=== PATIENT | male | born 1940 | race Caucasian/White ===

== ENCOUNTER 2023-10-21 11:20 | Inpatient (IN) | payer OTHER, SELFPAY ==
[2023-10-20] VITALS (8 sets, daily range): BP systolic 126–156; BP diastolic 62–86; BMI 25.3; BMI 24.9
[2023-10-20 10:28] LABS: % Basophils 0.4 % (0-2); % Eosinophils 1.3 % (0-6); % Immature Granulocytes 0.4 % (0-0.5); % Neutrophils 64.9 % (42.2-75.2); Absolute Eosinophils 0.1 10^3/uL (0-0.7); Absolute Lymphocytes 2.1 10^3/uL (1.2-3.4); Absolute Monocytes 0.7 10^3/uL (0.1-0.6); Absolute Neutrophils 5.5 10^3/uL (1.4-6.5); Hematocrit 35.9 % (39.0-52.0); Hemoglobin 12.2 g/dL (13.0-18.0); Mean Corpuscular Hgb 31.2 pg (27.0-31.0); Mean Corpuscular Volume 91.8 fL (80.0-94.0); Mean Platelet Volume 11.3 fL (7.4-10.4); Nucleated Red Blood Cells % 0 % (-); Platelet Count 128 10^3/uL (130-400); Red Blood Cell Count 3.91 10^6/uL (4.70-6.10); Red Cell Dist. Width 12.9 % (11.5-14.5); Urine Albumin Trace (Neg - Trace); Urine Bilirubin Negative (Negative); Urine Character Clear (Clear); Urine Color Yellow; Urine Glucose Trace (Negative); Urine Ketone Negative (Negative); Urine Leukocyte Negative (Negative); Urine Nitrite Negative (Negative); Urine Occult Blood 4+ (Negative); Urine Urobilinogen Negative (Neg - 1+); Urine pH 6.5 (5.0-9.0); White Blood Cell Count 8.4 10^3/uL (4.8-10.8)
[2023-10-20 10:39] LABS: Lactic Acid 1.5 mmol/L (0.7-2.0)
--- NOTE | 2023-10-20 10:39 | ED.GENMED ---
History of Present Illness
General
Chief Complaint: Change in Mental Status
Source: patient
Exam Limitations: none
Time Seen by Provider: 10/20/23 10:19
Nursing documentation reviewed up to this point in time: agreed with
History of Present Illness
History of Present Illness:
83-year-old male presents emergency room by EMS due to repeated falls, increased confusion and increased weakness.
Past History
Past History
ED Past Medical History: Cancer (Skin CA), GERD, HTN, Hypercholesterolemia, NIDDM and Other (Alzheimer's, balance problems, GERD, stress incontinence, ambulatory dysfunction, PNA, )
ED Past Surgical History: Orthopedic (Neck surgery, Knee surgery) and Other (Hernia surgery, sinus surgery, Eye lid surgery)
Social History
Tobacco: Non-smoker
Alcohol: Occasional
Drug: None
Personal:
Living: with family
Employment: Retired
Review of Systems
Review of Systems
Allergies reviewed?: Yes
Unable to obtain full review of systems at this time due to: dementia
All Other Systems: Not applicable (Denies any complaints)
Phy Exam
Physical Exam
Physical Exam:
Physical Exam
General: Temperature 100.4
Neck: supple. no meningeal signs. normal posterior pharynx
Heart: s1/s2 regular rate and rhythm, no murmur. equal radial
pulses.
HEENT: Pupils equal round reactive to light, EOMI
Lungs: no acute respiratory distress. clear bilaterally
Abdomen: normal bowel sounds. not tender. no CVAT
Neuro: alert and oriented to person only. no focal neurological deficits cranial nerves II through XII intact
Skin: no rash
Psychiatric: well kept. interactive and cooperative
Extremities: no edema. no calf tenderness. negative homans. good distal pulses
Course
Orders/Labs/Results
Orders:
Orders
10/20/23 10:14
Electrocardiogram (*1) Stat
Reason for Study: Fatigue / Weakness
10/20/23 10:15
Electrocardiogram (*1) Urgent
Reason for Study: Chest Pain
Cardiac Monitoring- Treatment ONCE
EKG- Treatment ONCE
IV Insert/Care/Rem.- Treatment PRN
10/20/23 10:19
Complete Blood Count/With Diff Urgent
Comprehensive Metabolic Panel Urgent
Lactic Acid Urgent
Urinalysis Reflex To Culture Urgent
Date Specimen was Collected: 10/20/23
Time Specimen was Collected: 10:15
Urine Microscopic Reflex Cult Urgent
10/20/23 10:31
Blood Culture Urgent
SAADIA Source: Blood/Venous
Specimen Description:
10/20/23 10:36
COVID-19 Antigen Urgent
Source: Nasal Swab
Influenza A+B Rapid Molecular Urgent
SAADIA Source: Nasal Swab
Specimen Description:
10/20/23 10:38
CT Head W/o Iv Contrast Urgent
Comment:
Reason For Exam: fall
Acetaminophen [Tylenol] 650 mg PO NOW STA
10/20/23 10:39
CR Chest - 2 Views Urgent
Comment:
Reason For Exam: fever
10/20/23 10:46
Blood Culture Urgent
SAADIA Source: Blood/Venous
Specimen Description:
Abnormal Lab Results
10/20/23
10:19
RBC 3.91 L 10^6/uL
(4.70-6.10)
Hgb 12.2 L g/dL
(13.0-18.0)
Hct 35.9 L %
(39.0-52.0)
MCH 31.2 H pg
(27.0-31.0)
Plt Count 128 L 10^3/uL
(130-400)
MPV 11.3 H fL
(7.4-10.4)
Absolute Monos (auto) 0.7 H 10^3/uL
(0.1-0.6)
Chloride 108 H mmol/L
(98-107)
BUN 26 H mg/dl
(9-20)
Creatinine 3.6 H mg/dL
(0.7-1.3)
Glucose 140 H mg/dl
(70-99)
Ur Occult Blood Reflex 4+ A
(Negative)
Urine RBC 80-90 A /HPF
(0-2)
Urine Glucose Trace A
(Negative)
10/20/23 10:19
10/20/23 10:19
Vital Signs
Initial and Last Documented VS:
Initial Vital Signs
Temp Pulse Resp BP Pulse Ox
100.4 F H 68 12 138/86 95
10/20/23 10:12 10/20/23 10:12 10/20/23 10:12 10/20/23 10:12 10/20/23 10:12
Last Documented Vital Signs
Temp Pulse Resp BP Pulse Ox
100.4 F H 62 18 138/86 95
10/20/23 10:12 10/20/23 10:45 10/20/23 10:45 10/20/23 10:12 10/20/23 10:45
*Pulse Oximetry
Patient hypoxic: no
*EKG
Interpreted by ED Provider?: Yes
EKG Intrepretation Date: 10/20/23
EKG Intrepretation Time: 10:25
Interpretation: abnormal
Comparison EKG: no comparison EKG present
Heart Rate: 62
Rate: normal
Rhythm: sinus and PVC's
[place]aver: normal axis
Interval: normal interval
QRS Pattern: normal QRS
Ischemia: no ischemia
*Critical Care Note
Total Time (30-74mins, 75-104mins- exclusive of procedures): Not Applicable
ED Attending Note
-
Portions of this chart may have been created with voice recognition software.� Occasional wrong word or��sound alike� substitutions may have occurred due to the inherent limitations of voice recognition software.
Discharge Plan
Departure
Patient Disposition: Admit
Date of Disposition: 10/20/23
Time of Disposition: 13:01
Admit to: Telemetry
Presentation/result/management discussed w/ accepting MD/DO: Hospitalist
Patient with high blood pressure during this ER visit?: Yes
Condition: Fair
Discharge Problem:
Acute renal failure, Fever, Generalized weakness
Prescriptions:
No Action
tamsulosin 0.4 MG capsule
0.4 mg PO DAILY
escitalopram oxalate 20 MG tablet
30 mg PO HS
cetirizine 10 MG tablet
10 mg PO DAILY
donepezil 10 MG tablet
10 mg PO HS
latanoprost 1 DROP drops
1 drp BOTH EYES HS
insulin aspart U-100 [Novolog U-100 Insulin aspart] 100 unit/mL Solution
0 - 10 unit SC ACHS
Rx Instructions:
0-150 = 0 units; 151-200 = 2 units; 201-250= 4 units; 251-300= 6 units; 301-350= 8 units; 351-400= 10 units
amlodipine 5 mg Tablet
5 mg PO DAILY Qty: 0 0RF
Insulin Glargine Lantus [Lantus] 22 UNITS
Subcutaneous Insulin Syringe [Syringe-Insulin] 0 UNIT
As Directed mls/hr SC HS
Ordered By: Nghia Seals MD
Last Taken: Unknown
atorvastatin 80 mg Tablet
80 mg PO HS
acetaminophen 325 mg Tablet
650 mg PO Q4H PRN (Reason: mild pain/fever)
magnesium hydroxide [Milk of Magnesia] 400 mg/5 mL Suspension
30 ml PO DAILY PRN (Reason: if no bm x 3 days)
bisacodyl [Dulcolax (bisacodyl)] 10 mg Suppository
10 mg MA DAILY PRN (Reason: if mom ineffective)
Fleet Enema 19-7 gram/118 mL Enema
118 ml MA DAILY PRN (Reason: if dulcolax ineffective)
insulin aspart U-100 [Novolog FlexPen U-100 Insulin] 100 unit/mL (3 mL) insulin pen
11 unit SC BID@1130,1630
rosuvastatin 40 mg Tablet
40 mg PO DAILY
Referrals:
Todd Campbell MD [Family Provider] -
Interventions
Interventions:
*Risk Screen - Suicide Last Done: 10/20/23 10:09
*General Assessment Last Done: 10/20/23 10:09
*Neglect/Abuse Screening Last Done: 10/20/23 10:09
ED- Fall Risk Assessment Last Done: 10/20/23 10:09
*ED COVID-19 Vaccine History Last Done: 10/20/23 10:18
ED- Pulmonary Assessment Last Done: 10/20/23 10:18
ED-Psychological Assessment Last Done: 10/20/23 10:18
ED- Neurological Assessment Last Done: 10/20/23 10:18
ED- Cardiac Assessment Last Done: 10/20/23 10:18
ED Swallowing Screen Last Done: 10/20/23 10:18
Discharge Date and Time
Print Language: SAUDI ARABIAN
[2023-10-20] MEDS: TYLENOL 650 MG PO (10:44)
[2023-10-20 10:45] LABS: Urine Squamous Cell 0-2 /LPF (Few)
[2023-10-20 10:46] LABS: ALT (SGPT) 43 U/L (0-50); AST (SGOT) 48 U/L (17-59); Alkaline Phosphatase 106 U/L (38-126); Blood Urea Nitrogen 26 mg/dl (9-20); Calcium 8.8 mg/dl (8.4-10.2); Carbon Dioxide 23 mmol/L (22-30); Chloride 108 mmol/L (98-107); Estimated Creatinine Clearance 16 ml/min; Glucose 140 mg/dl (70-99); Potassium 4.5 mmol/L (3.5-5.1); Sodium 140 mmol/L (135-145); Total Bilirubin 0.7 mg/dl (0.2-1.3); eGFR 16.16
[2023-10-20 10:49] LABS: Urine Red Blood Cell 80-90 /HPF (0-2); Urine White Cell 0-2 /HPF (0-5)
[2023-10-20 11:01] LABS: COVID-19 Antigen Negative (Negative)
[2023-10-20 13:26] LABS: Glucose - Point of Care 160 mg/dl (70-99)
--- NOTE | 2023-10-20 14:22 | CON.ID ---
Consultation
-
Date/Time Consultation Requested: October 20, 2023
Date/Time Consultation Performed: October 20, 2023
Requesting Provider: Dr. Marisela Bunch
Performing Provider: Dr. Alexia Ty
Reason for Consultation: fever
Chief Complaint / Past History
Chief Complaint
Weakness and falls
History of Present Illness
History obtained from review medical records since patient has dementia and is a very poor historian. He is a 83-year-old male with Alzheimer's dementia, diabetes mellitus, CKD 3, stress incontinence who presented to the hospital today due to
weakness. Patient has been having decreased appetite for the past few days. Patient had coughing fit around 2 AM. No fever. Patient was too weak to get back to bed. He was noted to be more lethargic. In the ER temperature was 100.4. White count
normal. Patient noted to have JOSEPH on CKD. COVID-negative. Flu negative. Head CT no acute pathology. He received vancomycin and cefepime in the ER. Patient denies fevers or chills. No headache. No cough or shortness of breath. No diarrhea.
No abdominal pain. No dysuria. No flank pain. No ill contacts. He stays at home and does not go out much. Sometimes he sits outside in the yard. Has 1 cat at home. No ill contacts.
Past History
Additional Past Medical History:
Alzheimer dementia
Diabetes mellitus
Dyslipidemia
CKD3
BPH
Stress incontinence
ambulatory dysfunction
knee surgery
Allergy History:
No Known Allergies Allergy (Verified 10/20/23 10:08)
Medications Reviewed: Yes
Current Antibiotics:
Vancomycin
cefepime
Social History
Tobacco: Non-Smoker
Alcohol: None
Drug: None
Personal:
Living: With Family
Family History
Family History: Not Pertinent
Review of Systems
Review of Systems
General: Change in Appetite; Negative Fever or Chills
HEENT: Negative Sinus Problems, Headache or Pharyngitis
Cardiovascular: Negative Chest Pain
Respiratory: Negative Dyspnea or Cough
Gasteroenterology: Negative Nausea or Vomiting
Genital / Urological: Negative Dysuria or Flank Pain
Endocrine: Weakness
Skin / Hair / Nails: Negative Rash
Neurological: Negative Headache or Dizziness
All systems: All other systems were reviewed and were negative
Vital Signs
Temp Pulse Resp BP Pulse Ox
98.2 F 55 13 126/62 96
10/20/23 13:25 10/20/23 13:25 10/20/23 13:25 10/20/23 13:25 10/20/23 13:25
Selected Entries
10/20/23
10:12
Temp 100.4 F H
Physical Exam
Physical Exam
Constitutional: No Acute Distress, Comfortable and Non-toxic
Eyes: No Conjunctival Hemorrhage and Sclera Anicteric
Cardiovascular: Regular Rate and S1/S2
Pulmonary: Clear
Gastrointestinal: Soft, Non Tender, Non Distended and Normal Bowel Sounds
Genito-Urinary: Negative CVA Tenderness
Extremities: Negative Edema
Neurological: Awake and Alert
Psychological: Calm
Lab / Diagnostic Study Results
10/20/23 10:19
10/20/23 10:19
Abs Immat Gran (auto) 0.0 10^3/uL (0-0.05) 10/20/23 10:19
Absolute Neuts (auto) 5.5 10^3/uL (1.4-6.5) 10/20/23 10:19
Absolute Lymphs (auto) 2.1 10^3/uL (1.2-3.4) 10/20/23 10:19
Absolute Monos (auto) 0.7 10^3/uL (0.1-0.6) H 10/20/23 10:19
Absolute Basos (auto) 0.0 10^3/uL (0-0.2) 10/20/23 10:19
Immature Gran % 0.4 % (0-0.5) 10/20/23 10:19
Neutrophils % 64.9 % (42.2-75.2) 10/20/23 10:19
Lymphocytes % 25.0 % (20.5-51.1) 10/20/23 10:19
Monocytes % 8.0 % (1.7-9.3) 10/20/23 10:19
Eosinophils % 1.3 % (0-6) 10/20/23 10:19
Basophils % 0.4 % (0-2) 10/20/23 10:19
Lactic Acid 1.5 mmol/L (0.7-2.0) 10/20/23 10:19
Ur Squamous Epith Cells 0-2 /LPF (Few) 10/20/23 10:19
Microbiology Results
Micro:
10/20/23 10:36 Influenza Types A & B (HANDY) - Final
Nasal Swab Negative for Influenza A & B, NAAT
Negative results must be combined with clinical observations
and patient history.
Nucleic Acid Amplification test (NAAT)performed on the
[employer] platform.
10/20/23 10:46 Blood Culture - Pending
Blood/Venous
10/20/23 10:31 Blood Culture - Pending
Blood/Venous
10/20/23 CXR: No active cardiopulmonary disease.
10/20/[address]: No acute intracranial abnormality noted.
Assessment / Plan
# Low grade fever
# Lethargy/poor appetite
# JOSEPH on CKD3
- CXR neg.
- UA no pyuria
- await blood cx's
- Continue cefepime pending cx data.
- DC Vancomycin
- Follow temps.
--- NOTE | 2023-10-20 14:34 | W.CON.NEPH ---
Consultation
-
Date/Time Consultation Requested: October 20, 2023 2 PM
Date/Time Consultation Performed: October 20, 2023 2 PM
Requesting Provider: Dr Bunch
Performing Provider: Dr. Lockett
Reason for Consultation: Acute kidney injury
Medical History
-
Chief Complaint: Mental status change
History of Present Illness:
This is a an 83-year-old gentleman who has some baseline dementia on donezepil therapy, as well as type II on insulin therapy stable, BPH on Flomax therapy. He was sent to emergency room by his who typically cares for him at home. His report
that he has had more frequent falls has worsening confusion and weakness. His oral intake has also declined recently. At the time of admission he was noted to have acute kidney injury with a creatinine of 3.6. The patient reports no issues that
he recalls and actually has no idea why he is in the emergency room. It appears his baseline creatinine may be closer to 1.7 representing CKD 3B.
Past Medical History
Dementia, CKD 3B, diabetes mellitus type 2, BPH, hyperlipidemia, DM neck surgery, hernia surgery,, sinus surgery eyelid surgery
Social History
Tobacco: Non-Smoker
Alcohol: Occasional
Family History
Family History: Not Pertinent
Allergies / Home Medications
Allergy/AdvReac Type Severity Reaction Status Date / Time
No Known Allergies Allergy Verified 10/20/23 10:08
�Medication �Instructions �Recorded �Confirmed �Type
donepezil 10 mg tablet 10 mg PO HS Memory issues 09/15/19 10/20/23 History
tamsulosin 0.4 mg capsule 0.4 mg PO QPM Urinary issue 09/15/19 10/20/23 History
insulin aspart U-100 100 unit/mL 5 unit SC DAILY 09/29/22 10/20/23 History
subcutaneous solution (Novolog
U-100 Insulin aspart)
escitalopram oxalate 10 mg tablet 30 mg PO QPM 10/20/23 10/20/23 History
(Lexapro)
insulin aspart U-100 100 unit/mL 8 unit SC QPM 10/20/23 10/20/23 History
(3 mL) subcutaneous pen (Novolog
FlexPen U-100 Insulin aspart)
insulin aspart U-100 100 unit/mL 10 unit SC NOON 10/20/23 10/20/23 History
(3 mL) subcutaneous pen (Novolog
FlexPen U-100 Insulin aspart)
insulin glargine 100 unit/mL (3 22 unit SC HS 10/20/23 10/20/23 History
mL) subcutaneous pen (Lantus
Solostar U-100 Insulin)
rosuvastatin 40 mg tablet 40 mg PO HS 10/20/23 10/20/23 History
Review of Systems
-
eating and drinking less, decreased appetite
All other systems: Negative unless noted
Physical Exam
Vital Signs
Vital Signs
Temp Pulse Resp BP Pulse Ox
98.2 F 55 13 126/62 96
10/20/23 13:25 10/20/23 13:25 10/20/23 13:25 10/20/23 13:25 10/20/23 13:25
Lab Results
WBC 8.4 10^3/uL (4.8-10.8) 10/20/23 10:19
RBC 3.91 10^6/uL (4.70-6.10) L 10/20/23 10:19
Hgb 12.2 g/dL (13.0-18.0) L 10/20/23 10:19
Hct 35.9 % (39.0-52.0) L 10/20/23 10:19
Plt Count 128 10^3/uL (130-400) L 10/20/23 10:19
Sodium 140 mmol/L (135-145) 10/20/23 10:19
Potassium 4.5 mmol/L (3.5-5.1) 10/20/23 10:19
Chloride 108 mmol/L (98-107) H 10/20/23 10:19
Carbon Dioxide 23 mmol/L (22-30) 10/20/23 10:19
BUN 26 mg/dl (9-20) H 10/20/23 10:19
Creatinine 3.6 mg/dL (0.7-1.3) H 10/20/23 10:19
eGFR 16.16 10/20/23 10:19
Glucose 140 mg/dl (70-99) H 10/20/23 10:19
Calcium 8.8 mg/dl (8.4-10.2) 10/20/23 10:19
Albumin 4.0 g/dl (3.5-5.0) 10/20/23 10:19
Physical Exam
Patient is awake alert oriented and in no distress. Mood and affect were pleasant, insight and judgment were poor. Pupils are equal round and reactive to light, extraocular movements are intact, sclera were anicteric. Hearing was normal, ears and
nose are intact. Oropharynx was clear. Neck was supple with trachea midline and no thyromegaly. Heart was regular rate and rhythm without rubs. Lower extremities without edema. Lungs were clear to auscultation bilaterally and with normal
excursion. Abdomen was soft, nontender, with normal active bowel sounds, and no hepatosplenomegaly. Skin was without rash and with normal turgor.
Data Reviewed
-
Radiology: Image Personally Visualized and interpreted (Chest x-ray on October 20, 2023 by my reading shows no acute disease)
CT Scan: Report Reviewed by me (CT head on 10/20/2023 shows no acute disease)
Medical Tests (Nuc Med, Echo etc): Image Personally Visualized and interpreted (EKG on October 20, 2023 by my read shows normal sinus rhythm PAC)
Labs: Labs Reviewed by me (Hemoglobin 12.2, WBC 8.4, platelets 128, sodium 140, potassium 4.5, BUN 26, creatinine 3.6, glucose 140, urinalysis pH of 6.5/1.010, 4+ blood, 80 red cells, trace glucose, trace albumin)
Old Records: Reviewed
Critical Care Time (in minutes): On 09/30/2022 creatinine 1.7
Assessment/Plan
-
Assessment
acute kidney injury
CKD 3B, 1.7
Dementia
Diabetes mellitus type 2
BPH
Confusion, weakness
Falls decreased appetite
Plan
Check bladder scan
IV fluids
Follow BMP
Check urine studies
Check renal ultrasound
--- NOTE | 2023-10-20 14:36 | HPS.HSE ---
Family Physician
-
Family Physician: Todd Campbell
Chief Complaint
-
Generalized weakness and poor oral intake
History of Present Illness
81-year-old male who lives at home with his , with history of dementia and provided information while patient awake, alert and oriented denying particular complaint, brought to the hospital with his notes progressively getting weak and
lousy and lethargic in the last couple day mostly Saturday afternoon.
According to the he woke up around 2:00 in the morning, had a coughing spell without any sputum or shortness of breath or fever and was not able to put him back to help and called her daughter to come in and help him back in the bed, since
then he has been progressively worsening becoming weak and lousy and lethargic while during the few day prior he was not eating drinking much, according to the patient of no particular complaint other than what she noticed and observed by
herself.
No fall or accident no syncope, no urinary or GI symptoms.
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
Workup in the ER showed dehydration and acute on chronic renal failure and low-grade fever.
Chest x-ray and CT brain showed no acute abnormality.
Medical History
Past Medical History
Past Medical History: Reports Other
Additional Past Medical History:
Past medical history archive reviewed:
Dementia
Insulin-dependent mellitus
Ambulatory dysfunction
GERD
History of stress incontinence
Skin cancer
Hypertension
Dyslipidemia
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
Family history: Reviewed and noncontributory
Past Surgical History: Reports Appendectomy
Social History
Unable to obtain full social history at this time due to: Other
Family History
Family History: Other
Allergies / Home Medications
Allergies reflects when Allergies were last updated in [facility].
Home Medications with original date entered in [facility]
Allergy/Medication List:
Allergies
Allergy/AdvReac Type Severity Reaction Status Date / Time
No Known Allergies Allergy Verified 10/20/23 10:08
Home Medications
donepezil 10 mg tablet 10 mg PO HS Memory issues 09/15/19
tamsulosin 0.4 mg capsule 0.4 mg PO QPM Urinary issue 09/15/19
insulin aspart U-100 100 unit/mL subcutaneous solution (Novolog U-100 Insulin aspart) 5 unit SC DAILY 09/29/22
escitalopram oxalate 10 mg tablet (Lexapro) 30 mg PO QPM 10/20/23
insulin aspart U-100 100 unit/mL (3 mL) subcutaneous pen (Novolog FlexPen U-100 Insulin aspart) 8 unit SC QPM 10/20/23
insulin aspart U-100 100 unit/mL (3 mL) subcutaneous pen (Novolog FlexPen U-100 Insulin aspart) 10 unit SC NOON 10/20/23
insulin glargine 100 unit/mL (3 mL) subcutaneous pen (Lantus Solostar U-100 Insulin) 22 unit SC HS 10/20/23
rosuvastatin 40 mg tablet 40 mg PO HS 10/20/23
Review of Systems
-
A 12 point ROS was completed and negative except as noted: Yes
Physical Exam
Vital Signs
Vital Signs
Temp Pulse Resp BP Pulse Ox
97.6 F 52 16 139/67 95
10/20/23 14:34 10/20/23 14:34 10/20/23 14:34 10/20/23 14:34 10/20/23 14:34
physical exam:
General: Awake, alert and oriented x3, but lethargic, speaks in low tone of voice and not in distress and holds appropriate conversation.
HEENT: Poor dentition, no active discharge, ecchymosis or bruising, dry lips, tongue and mucous membrane.
Eyes: No discharge or red conjunctiva, no nystagmus, pupils are reactive and equal
Neck:Supple, no JVD no bruit no goiter.
Respiratory: Normal AP contour and diameter, normal chest wall movement, normal respiratory effort, no respiratory distress,
Lungs: Good air entry bilaterally, no wheezing or rhonchi, no rales or crackles
Heart: S1, S2 regular, normal rate, no added sound.
Gastrointestinal: Positive bowel sounds, soft, nontender, no guarding or rigidity or organomegaly
Musculoskeletal: , no chest wall abnormality or tenderness. All joints and extremities have good range of motion, no muscle tenderness or any joint swelling or tenderness.
Extremities: No pitting edema, good peripheral pulses, good range of motion
Skin: Warm and dry, no ulceration, normal color.
Neurological: Awake, alert and oriented x3, no facial droop cranial nerve II-XII grossly intact, speech clear and comprehensive, good muscle tone, normal sensory and motor function
Psychiatric: Normal mood, normal thought and judgment, normal affect,
Physical Exam
General: Other
Laboratory Results
-
10/20/23 10:19
10/20/23 10:19
Laboratory Results
Lactic Acid 1.5 mmol/L (0.7-2.0) 10/20/23 10:19
Total Bilirubin 0.7 mg/dl (0.2-1.3) 10/20/23 10:19
AST 48 U/L (17-59) 10/20/23 10:19
ALT 43 U/L (0-50) 10/20/23 10:19
Alkaline Phosphatase 106 U/L (38-126) 10/20/23 10:19
chest x-ray: No acute cardiopulmonary normality
Brain CT no acute intracranial abnormalities.
KG showed normal sinus rhythm rate around 62, OK 192, QTc 442 otherwise no acute abnormality
Data Reviewed
-
Diagnostic Radiology: Image Personally Visualized and interpreted, Discussed with Physician, Discussed with Patient and Discussed with Family
Lab Data: Labs Reviewed by me, Discussed with Physician and Discussed with Family
Old Records: Reviewed
Impression/Plan
-
IMPRESSION:
83-year-old male with history of dementia, brought to the hospital with a for worsening generalized weakness and poor oral intake over the last few days in the ER had some fever without any other signs and symptoms.
Generalized weakness
Fever, concern for viral infection while other causes need to be considered
Diabetic encephalopathy meningitis
Acute on chronic renal failure
Dehydration
Mild microscopic hematuria
Diabetes mellitus
Dementia
Dyslipidemia
Urinary incontinence
PLAN:
So far no source of infection isolated
Blood cultures collected and pending
Will cover with broad-spectrum antibiotic renally dosed including Vanco and cefepime until the picture clears up if there is no evidence of an infection then antibiotic can be discontinued otherwise if fever persist we may need to sánchez scan chest,
abdominal and pelvis
Get infectious disease consult
IV fluid
Monitor vital sign closely
Recheck
Avoid nephrotoxin
Nephrology consult
Decreases insulin with meal and Lantus as he is not eating much and will closely monitor blood sugar.
All discussed with the patient and the in detail
CODE STATUS was discussed with the patient and the according to the is DNR
DVT prophylaxis heparin subcu
--- NOTE | 2023-10-20 14:51 | EDRN ---
this RN called the receiving unit and notified them that paper report was going to be tubed up
--- NOTE | 2023-10-20 16:00 | PTCARENOTE ---
pt admitted from ED to room 435-02. pt pulled over from stretcher to bed. pt oriented to self, disoriented to time (unsure of the year). generalized weakness. pt pleasant and cooperative with care. lungs sounds clear to auscultation. incontinent of
urine and bowel, had loose brown bowel movement. pt updated on plan of care. see worklist for full nursing assessment.
[2023-10-20] MEDS: MAXIPIME 1000 MG IV (16:08)
[2023-10-20] MEDS: NSS 1000 IV (16:08)
[2023-10-20] MEDS: HEPARIN 5000 UNITS SC ×2 (16:10→23:47)
[2023-10-20 16:35] LABS: Glucose - Point of Care 150 mg/dl (70-99)
[2023-10-20] MEDS: VANCOCIN 300 ML IV (16:38)
[2023-10-20] MEDS: VANCOCIN 300 MG IV (16:38)
[2023-10-20] MEDS: NOVOLOG FLEXPEN-MODERATE RESISTANCE 1 UNITS SC (16:54)
[2023-10-20] MEDS: NOVOLOG FLEXPEN 5 UNITS SC (16:54)
[2023-10-20] MEDS: LEXAPRO 30 MG PO (18:04)
[2023-10-20 20:09] LABS: Urine Sodium 128 mmol/L (30-90)
[2023-10-20 22:05] LABS: Glucose - Point of Care 124 mg/dl (70-99)
[2023-10-20] MEDS: ARICEPT 10 MG PO (22:23)
[2023-10-20] MEDS: LANTUS SC (22:23)
[2023-10-20] MEDS: LANTUS 0.18 UNITS SC (23:47)
[2023-10-21] MEDS: MAXIPIME 1000 MG IV (04:00)
[2023-10-21] MEDS: STERILE WATER FOR INJECTION 10 ML IV (04:01)
[2023-10-21] MEDS: NSS 1000 IV (06:30)
[2023-10-21 07:23] LABS: % Basophils 0.6 % (0-2); % Eosinophils 2.7 % (0-6); % Immature Granulocytes 0.2 % (0-0.5); % Monocytes 7.3 % (1.7-9.3); % Neutrophils 56.2 % (42.2-75.2); Absolute Eosinophils 0.2 10^3/uL (0-0.7); Absolute Lymphocytes 2.2 10^3/uL (1.2-3.4); Absolute Monocytes 0.5 10^3/uL (0.1-0.6); Absolute Neutrophils 3.7 10^3/uL (1.4-6.5); Hematocrit 34.6 % (39.0-52.0); Hemoglobin 11.7 g/dL (13.0-18.0); Mean Corp Hgb Conc. 33.8 g/dL (33.0-37.0); Mean Corpuscular Hgb 31.3 pg (27.0-31.0); Mean Corpuscular Volume 92.5 fL (80.0-94.0); Mean Platelet Volume 11.4 fL (7.4-10.4); Nucleated Red Blood Cells % 0 % (-); Platelet Count 123 10^3/uL (130-400); Red Blood Cell Count 3.74 10^6/uL (4.70-6.10); Red Cell Dist. Width 12.8 % (11.5-14.5); White Blood Cell Count 6.6 10^3/uL (4.8-10.8)
[2023-10-21 07:30] VITALS: BP 167/71
[2023-10-21 07:47] LABS: Glucose - Point of Care 80 mg/dl (70-99)
[2023-10-21 07:58] LABS: Blood Urea Nitrogen 25 mg/dl (9-20); Calcium 8.8 mg/dl (8.4-10.2); Carbon Dioxide 25 mmol/L (22-30); Chloride 108 mmol/L (98-107); Estimated Creatinine Clearance 20 ml/min; Glucose 80 mg/dl (70-99); Potassium 4.9 mmol/L (3.5-5.1); Sodium 142 mmol/L (135-145); eGFR 20.94
[2023-10-21] MEDS: NOVOLOG FLEXPEN-MODERATE RESISTANCE SC (08:19)
[2023-10-21 08:47] LABS: Vitamin B12 260 pg/ml (239-931)
[2023-10-21 09:20] LABS: Glycohemoglobin (HgbA1c) 8.7 % (4.0-5.6)
[2023-10-21] MEDS: NOVOLOG FLEXPEN 5 UNITS SC ×3 (09:21→16:29)
[2023-10-21] MEDS: HEPARIN 5000 UNITS SC ×3 (09:22→23:05)
--- NOTE | 2023-10-21 09:58 | W.PN.HOSP.TC ---
Today's Communication/Plan
-
see bold
Assessment / Plan
Assessment / Plan
Gen: NAD, awake and alert
Eyes: EOMI, PERRLA, no scleral icterus.
Neck: supple.
CV: RRR, +S1/S2, no m/r/g.
Resp: CTAB, no rales, wheezes, or rhonchi.
Abd: +BS, soft, NT, ND
Skin: No rashes.
Neuro: CN 2-12 intact, non-focal.
Psych: Normal mood and affect.
CT head: No acute intracranial abnormality noted.
CXR: No active cardiopulmonary disease.
Renal U/S: No hydronephrosis on either side. Mild cortical thinning on each side, suggestive of medical renal disease.
JOSEPH on CKD3b:
-presented with generalized weakness
-one fever 100.4 F on 10/20/23, no fever since. Currently on Cefepime pending Cx data as per ID.
-Cr improving with IVFs
-renal following
DM2:
-a1c 8.7%
-cont Lantus/premeal Novolog
-SSI/accuchecks
Other problems:
Dementia: Cont Aricept
Hyperlipidemia
Urinary incontinence
DNR/heparin
Anticipated Discharge: 24 - 48 hours
Subjective/Interval History
-
Date of Service: October 21, 2023
Denies chest pain or shortness of breath.
Objective Data
-
Labs:
Laboratory Results
10/21/23
06:50
WBC 6.6
Hgb 11.7 L
Hct 34.6 L
Plt Count 123 L
Sodium 142
Potassium 4.9
Chloride 108 H
Carbon Dioxide 25
BUN 25 H
Creatinine 2.9 H
Glucose 80
Calcium 8.8
Vital Signs:
Vital Signs
Temp Pulse Resp BP Pulse Ox
98.5 F 53 20 167/71 96
10/21/23 07:30 10/21/23 07:30 10/21/23 07:30 10/21/23 07:30 10/21/23 07:30
I&O
10/20/23 10/21/23 10/22/23
06:59 06:59 06:59
Intake Total 1899
Balance 1899
[2023-10-21 11:35] LABS: Glucose - Point of Care 220 mg/dl (70-99)
--- NOTE | 2023-10-21 11:45 | W.PN.ID1 ---
Date of Service
Date of Service: October 21, 2023
Today's Communication
DC abx and observe.
Assessment / Plan
# Low grade fever resolved
# Lethargy/poor appetite
# JOSEPH on CKD3
- CXR neg.
- UA no pyuria
- blood cx's neg to date
- DC cefepime and observe.
.
Chief Complaint
-: Fever
Subjective / Review of Systems
No complaints
Vital Signs / Physical Exam
Vital Signs
Vital Signs
Temp Pulse Resp BP Pulse Ox
98.5 F 53 20 167/71 96
10/21/23 07:30 10/21/23 07:30 10/21/23 07:30 10/21/23 07:30 10/21/23 07:30
Physical Exam
Constitutional: No Acute Distress and Comfortable
Pulmonary: Clear
Gastrointestinal: Non Tender and Non Distended
Genito-Urinary: Negative CVA Tenderness
Objective Data
Lab Data
Lab Results
10/21/23 06:50
10/21/23 06:50
Estimated Creat Clear 20 ml/min 10/21/23 06:50
Lactic Acid 1.5 mmol/L (0.7-2.0) 10/20/23 10:19
Total Bilirubin 0.7 mg/dl (0.2-1.3) 10/20/23 10:19
AST 48 U/L (17-59) 10/20/23 10:19
ALT 43 U/L (0-50) 10/20/23 10:19
Alkaline Phosphatase 106 U/L (38-126) 10/20/23 10:19
Most recent labs reviewed.
Micro Results:
10/20/23 10:46 Blood Culture - Preliminary
Blood/Venous No Growth in 24 hours- Final report to follow
10/20/23 10:31 Blood Culture - Preliminary
Blood/Venous No Growth in 24 hours- Final report to follow
10/20/23 16:49 Nasal Screen MRSA (PCR) - Pending
Nose
10/20/23 10:36 Influenza Types A & B (HANDY) - Final
Nasal Swab Negative for Influenza A & B, NAAT
Negative results must be combined with clinical observations
and patient history.
Nucleic Acid Amplification test (NAAT)performed on the
[employer] platform.
10/20/23 CXR: No active cardiopulmonary disease.
10/20/[address]: No acute intracranial abnormality noted.
[2023-10-21] MEDS: NOVOLOG FLEXPEN-MODERATE RESISTANCE 3 UNITS SC ×2 (12:25→16:28)
--- NOTE | 2023-10-21 13:00 | W.PN.NEPH.PH ---
Today's Communication / Plan
-
- trend BMP
Assessment/Plan
-
Assessment
acute kidney injury
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
Dementia
Diabetes mellitus type 2
BPH
Confusion, weakness
Falls decreased appetite
Plan
KUS with cortical thinning suggestive of medical renal disease
no retention on bladder scan
Cr improving with IVF
Patient noted to have blood on UA, no gross hematuria, no proteinuria. no hx of smoking. could consider urology follow up as outpatient but we will see how his JOSEPH progresses
Follow BMP
-
-
Date of Service: October 21, 2023
CC / HPI / ROS
-
Chief Complaint:
JOSEPH on CKD
History of Present Illness:
bl Cr 1.6-1.8, elevated to 3.6, most recent 2.9
on IVF
Review of Systems:
feeling well
Labs
-
Labs:
WBC 6.6 10^3/uL (4.8-10.8) 10/21/23 06:50
RBC 3.74 10^6/uL (4.70-6.10) L 10/21/23 06:50
Hgb 11.7 g/dL (13.0-18.0) L 10/21/23 06:50
Hct 34.6 % (39.0-52.0) L 10/21/23 06:50
Plt Count 123 10^3/uL (130-400) L 10/21/23 06:50
Sodium 142 mmol/L (135-145) 10/21/23 06:50
Potassium 4.9 mmol/L (3.5-5.1) 10/21/23 06:50
Chloride 108 mmol/L (98-107) H 10/21/23 06:50
Carbon Dioxide 25 mmol/L (22-30) 10/21/23 06:50
BUN 25 mg/dl (9-20) H 10/21/23 06:50
Creatinine 2.9 mg/dL (0.7-1.3) H 10/21/23 06:50
eGFR 20.94 10/21/23 06:50
Glucose 80 mg/dl (70-99) 10/21/23 06:50
Calcium 8.8 mg/dl (8.4-10.2) 10/21/23 06:50
Albumin 4.0 g/dl (3.5-5.0) 10/20/23 10:19
Physical Exam
-
Vital Signs:
Vital Signs
Temp Pulse Resp BP Pulse Ox
98.5 F 53 20 167/71 96
10/21/23 07:30 10/21/23 07:30 10/21/23 07:30 10/21/23 07:30 10/21/23 07:30
Cardiovascular:: Regular rate and rhythm
Respiratory:: Bilateral: Coarse
Lung Excursion:: Normal
Abdomen:: Nontender and Soft
Bowel Sounds:: Normal
Extremity Edema:: None: Bilateral:
Snyder Catheter: No
[2023-10-21 15:45] VITALS: BP 144/62
[2023-10-21 15:56] LABS: Glucose - Point of Care 245 mg/dl (70-99)
[2023-10-21] MEDS: LEXAPRO 30 MG PO (17:59)
[2023-10-21 21:35] LABS: Glucose - Point of Care 71 mg/dl (70-99)
[2023-10-21] MEDS: ARICEPT 10 MG PO (23:04)
[2023-10-21] MEDS: LANTUS SC (23:07)
[2023-10-21 23:35] VITALS: BP 173/74
--- NOTE | 2023-10-22 00:36 | PTCARENOTE ---
Addendum entered by Hortencia Bryant RN 10/22/23 03:32:
Recheck BS 118. Plan of care ongoing.
Original Note:
21:34 BS 71. AAXO2. 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 New orders placed. 22:00 medication administered with apple sauce and pt ate the entire 4oz container of apple sauce. Pt drank 2 4oz orange juice. Recheck BS at 03:00. Plan of
care ongoing.
[2023-10-22 03:11] LABS: Glucose - Point of Care 118 mg/dl (70-99)
[2023-10-22 07:05] LABS: Hemoglobin 11.6 g/dL (13.0-18.0); Mean Corp Hgb Conc. 35.2 g/dL (33.0-37.0); Mean Corpuscular Hgb 31.2 pg (27.0-31.0); Mean Corpuscular Volume 88.7 fL (80.0-94.0); Mean Platelet Volume 11.2 fL (7.4-10.4); Platelet Count 126 10^3/uL (130-400); Red Blood Cell Count 3.72 10^6/uL (4.70-6.10); Red Cell Dist. Width 12.7 % (11.5-14.5); White Blood Cell Count 5.4 10^3/uL (4.8-10.8)
[2023-10-22 07:22] LABS: Blood Urea Nitrogen 22 mg/dl (9-20); Calcium 8.8 mg/dl (8.4-10.2); Carbon Dioxide 22 mmol/L (22-30); Chloride 106 mmol/L (98-107); Estimated Creatinine Clearance 28 ml/min; Glucose 91 mg/dl (70-99); Potassium 4.5 mmol/L (3.5-5.1); Sodium 139 mmol/L (135-145); eGFR 30.85
[2023-10-22 07:34] VITALS: BP 149/67
[2023-10-22 08:00] LABS: Glucose - Point of Care 100 mg/dl (70-99)
[2023-10-22] MEDS: NOVOLOG FLEXPEN-MODERATE RESISTANCE SC ×2 (08:12→12:21)
[2023-10-22] MEDS: NOVOLOG FLEXPEN 5 UNITS SC ×3 (08:54→16:48)
[2023-10-22] MEDS: HEPARIN 5000 UNITS SC ×3 (08:54→23:07)
--- NOTE | 2023-10-22 11:32 | W.PN.ID1 ---
Date of Service
Date of Service: October 22, 2023
Today's Communication
Observe off abx.
ID will sign off.
Assessment / Plan
# Low grade fever x 1 resolved
# JOSEPH on CKD3 - improving
- CXR neg.
- UA no pyuria
- blood cx's neg to date
-Observe off abx.
-ID will sign off.
#Additional Past Medical History:
Alzheimer dementia
Diabetes mellitus
Dyslipidemia
CKD3
BPH
Stress incontinence
ambulatory dysfunction
knee surgery
Chief Complaint
-: Fever
Subjective / Review of Systems
No complaints today.
Vital Signs / Physical Exam
Vital Signs
Vital Signs
Temp Pulse Resp BP Pulse Ox
97.8 F 54 19 149/67 96
10/22/23 07:34 10/22/23 07:34 10/22/23 07:34 10/22/23 07:34 10/22/23 07:34
Physical Exam
Constitutional: No Acute Distress and Comfortable
Pulmonary: Clear
Gastrointestinal: Soft and Non Distended
Extremities: Negative Edema
Objective Data
Lab Data
Lab Results
10/22/23 06:30
10/22/23 06:30
Estimated Creat Clear 28 ml/min 10/22/23 06:30
Lactic Acid 1.5 mmol/L (0.7-2.0) 10/20/23 10:19
Total Bilirubin 0.7 mg/dl (0.2-1.3) 10/20/23 10:19
AST 48 U/L (17-59) 10/20/23 10:19
ALT 43 U/L (0-50) 10/20/23 10:19
Alkaline Phosphatase 106 U/L (38-126) 10/20/23 10:19
Most recent labs reviewed.
Micro Results:
10/20/23 10:46 Blood Culture - Preliminary
Blood/Venous No Growth in 48 hours- Final report to follow
10/20/23 10:31 Blood Culture - Preliminary
Blood/Venous No Growth in 48 hours- Final report to follow
10/20/23 16:49 Nasal Screen MRSA (PCR) - Final
Nose MRSA not detected - performed by PCR methodology.
10/20/23 10:36 Influenza Types A & B (HANDY) - Final
Nasal Swab Negative for Influenza A & B, NAAT
Negative results must be combined with clinical observations
and patient history.
Nucleic Acid Amplification test (NAAT)performed on the
[employer] platform.
10/20/23 CXR: No active cardiopulmonary disease.
10/20/[address]: No acute intracranial abnormality noted.
[2023-10-22 11:44] LABS: Glucose - Point of Care 141 mg/dl (70-99)
--- NOTE | 2023-10-22 11:54 | W.PN.HOSP.TC ---
Today's Communication/Plan
-
see A/P
Assessment / Plan
Assessment / Plan
Gen: NAD, awake and alert
Eyes: EOMI, PERRLA, no scleral icterus.
Neck: supple.
CV: RRR, +S1/S2, no m/r/g.
Resp: CTAB, no rales, wheezes, or rhonchi.
Abd: +BS, soft, NT, ND
Skin: No rashes.
Neuro: CN 2-12 intact, non-focal.
Psych: Normal mood and affect.
CT head: No acute intracranial abnormality noted.
CXR: No active cardiopulmonary disease.
Renal U/S: No hydronephrosis on either side. Mild cortical thinning on each side, suggestive of medical renal disease.
A/P:
# JOSEPH on CKD3b, presented with generalized weakness
Cr 2.1 today, was 3.6 on admission
Cont IVF
KUS with cortical thinning suggestive of medical renal disease
no retention on bladder scan
renal following
PT OT eval for weakness
# one fever 100.4 F on 10/20/23, no fever since.
Blood culture negative, off Cefepime. ID signed off.
# IDDM:
a1c 8.7%
cont Lantus/premeal Novolog at reduced dose
SSI/accuchecks
Other problems:
Dementia: Cont Aricept
Hyperlipidemia
Urinary incontinence
DNR/heparin
Anticipated Discharge: 24 - 48 hours
Subjective/Interval History
-
Date of Service: October 22, 2023
Objective Data
-
Labs:
Laboratory Results
10/22/23
06:30
WBC 5.4
Hgb 11.6 L
Hct 33.0 L
Plt Count 126 L
Sodium 139
Potassium 4.5
Chloride 106
Carbon Dioxide 22
BUN 22 H
Creatinine 2.1 H
Glucose 91
Calcium 8.8
Vital Signs:
Vital Signs
Temp Pulse Resp BP Pulse Ox
36.6 C 54 19 149/67 96
10/22/23 07:34 10/22/23 07:34 10/22/23 07:34 10/22/23 07:34 10/22/23 07:34
I&O
10/21/23 10/22/23 10/23/23
06:59 06:59 06:59
Intake Total 1899 1080 / 1080
Output Total 150 / 150
Balance 1899 930 / 930
Review of Systems
-
All other systems: Reviewed and negative
Physical Exam
-
General: Well Developed, Well Nourished, No Apparent Distress, Comfortable and Conversant; Negative Respiratory Distress
HEENT: Normocephalic, Atraumatic, Nose Appears Normal and Ears Appear Normal; Negative Oxygen
Respiratory: Clear to Auscultation and Non Labored Respirations; Negative Accessory Resp Muscle Use
Cardiac: Regular Rhythm and S1/S2
GI: Soft, Nontender, Nondistended and Normal Bowel Sounds
Skin: Warm and Dry
Neuro: Awake and Alert
Psych: Calm and Intact Judgement/Insight
Data Reviewed
-
Labs: Labs Reviewed by me
--- NOTE | 2023-10-22 12:05 | W.PN.NEPH.PH ---
Today's Communication / Plan
-
- monitor off IVF
Assessment/Plan
-
Assessment
acute kidney injury
CKD 3B, 1.7
Dementia
Diabetes mellitus type 2
BPH
Confusion, weakness
Falls decreased appetite
Plan
KUS with cortical thinning suggestive of medical renal disease
no retention on bladder scan
Cr improving with IVF, almost back to baseline. ?ATN
Hold IVFs, encouraged PO intake
Patient noted to have blood on UA, no gross hematuria, no proteinuria. no hx of smoking. could consider urology follow up as outpatient
Follow BMP
Hoping for d/c tomorrow
-
-
Date of Service: October 22, 2023
CC / HPI / ROS
-
Chief Complaint:
JOSEPH on CKD
History of Present Illness:
bl Cr 1.6-1.8, elevated to 3.6, most recent 2.1
stopped IVF on 10/21
Review of Systems:
feeling well
Labs
-
Labs:
WBC 5.4 10^3/uL (4.8-10.8) 10/22/23 06:30
RBC 3.72 10^6/uL (4.70-6.10) L 10/22/23 06:30
Hgb 11.6 g/dL (13.0-18.0) L 10/22/23 06:30
Hct 33.0 % (39.0-52.0) L 10/22/23 06:30
Plt Count 126 10^3/uL (130-400) L 10/22/23 06:30
Sodium 139 mmol/L (135-145) 10/22/23 06:30
Potassium 4.5 mmol/L (3.5-5.1) 10/22/23 06:30
Chloride 106 mmol/L (98-107) 10/22/23 06:30
Carbon Dioxide 22 mmol/L (22-30) 10/22/23 06:30
BUN 22 mg/dl (9-20) H 10/22/23 06:30
Creatinine 2.1 mg/dL (0.7-1.3) H 10/22/23 06:30
eGFR 30.85 10/22/23 06:30
Glucose 91 mg/dl (70-99) 10/22/23 06:30
Calcium 8.8 mg/dl (8.4-10.2) 10/22/23 06:30
Albumin 4.0 g/dl (3.5-5.0) 10/20/23 10:19
Physical Exam
-
Vital Signs:
Vital Signs
Temp Pulse Resp BP Pulse Ox
97.8 F 54 19 149/67 96
10/22/23 07:34 10/22/23 07:34 10/22/23 07:34 10/22/23 07:34 10/22/23 07:34
Cardiovascular:: Regular rate and rhythm
Respiratory:: Bilateral: Coarse
Lung Excursion:: Normal
Abdomen:: Nontender and Soft
Bowel Sounds:: Normal
Extremity Edema:: None: Bilateral:
Snyder Catheter: No
[2023-10-22 15:04] VITALS: BP 124/92; PULSE 67
[2023-10-22 15:07] VITALS: BP 124/92; PULSE 67
[2023-10-22 15:24] VITALS: BP 155/74
[2023-10-22 15:42] LABS: Glucose - Point of Care 228 mg/dl (70-99)
[2023-10-22] MEDS: LEXAPRO 30 MG PO (16:48)
[2023-10-22] MEDS: NOVOLOG FLEXPEN-MODERATE RESISTANCE 3 UNITS SC (16:48)
--- NOTE | 2023-10-22 17:02 | CM ---
optical manager reviewed patient's chart and met with patient and spouse in room, patient lives with spouse in a bilevel home, patient was independent with adl's and uses a walker with ambulation.
Pharmacy: [facility]
PCP: Dr. Campbell
Plan; Home with spouse no needs, patient has declined the need for visiting nurses.
[2023-10-22 21:35] LABS: Glucose - Point of Care 68 mg/dl (70-99)
[2023-10-22 22:00] LABS: Glucose - Point of Care 80 mg/dl (70-99)
[2023-10-22] MEDS: ARICEPT 10 MG PO (23:11)
[2023-10-22] MEDS: LANTUS SC (23:12)
[2023-10-22 23:48] LABS: Glucose - Point of Care 90 mg/dl (70-99)
[2023-10-23 03:03] LABS: Glucose - Point of Care 124 mg/dl (70-99)
--- NOTE | 2023-10-23 03:25 | DOWNTIME ---
There was a [employer] Consultant Downtime on 10/23/2023 from 0100 to 10/23/2023 at 0255. Downtime documentation of patient's care, including medication administrations, has been reconciled in the electronic record per guidelines. Refer to the
patient's paper chart under the miscellaneous tab to see printed paper medication records and downtime forms.
--- NOTE | 2023-10-23 05:54 | PTCARENOTE ---
~21:33 BS 68. Pt reports 'I feel fine.' Pt drank one 4 oz orange juice. 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 22:00 Damaris dunn d/t venkat BS. Hypoglycemia protocol initiated. See MAR. Plan of care ongoing.
22:00 medication administered with apple sauce. Pt ate entire 4 oz container of apple sauce and drank one 4 oz orange juice. Plan of care ongoing.
[2023-10-23 07:24] LABS: Hematocrit 35.3 % (39.0-52.0); Hemoglobin 12.1 g/dL (13.0-18.0); Mean Corp Hgb Conc. 34.3 g/dL (33.0-37.0); Mean Corpuscular Hgb 31.1 pg (27.0-31.0); Mean Corpuscular Volume 90.7 fL (80.0-94.0); Mean Platelet Volume 11.5 fL (7.4-10.4); Platelet Count 147 10^3/uL (130-400); Red Blood Cell Count 3.89 10^6/uL (4.70-6.10); White Blood Cell Count 5.6 10^3/uL (4.8-10.8)
[2023-10-23 07:57] LABS: Blood Urea Nitrogen 19 mg/dl (9-20); Calcium 9.1 mg/dl (8.4-10.2); Carbon Dioxide 29 mmol/L (22-30); Chloride 103 mmol/L (98-107); Estimated Creatinine Clearance 29 ml/min; Glucose 129 mg/dl (70-99); Potassium 5.5 mmol/L (3.5-5.1); Sodium 139 mmol/L (135-145); eGFR 32.71
[2023-10-23 08:10] VITALS: BP 148/68
[2023-10-23 08:25] LABS: Glucose - Point of Care 134 mg/dl (70-99)
[2023-10-23 08:53] LABS: Glucose - Point of Care 147 mg/dl (70-99)
[2023-10-23] MEDS: NOVOLOG FLEXPEN 5 UNITS SC ×2 (09:32→12:05)
[2023-10-23] MEDS: NOVOLOG FLEXPEN-MODERATE RESISTANCE SC (09:32)
[2023-10-23] MEDS: HEPARIN 5000 UNITS SC (09:33)
--- NOTE | 2023-10-23 09:41 | W.PN.HOSP.TC ---
Addendum entered and electronically signed by Eunice Covarrubias MD 10/23/23 14:03:
total DC time 40 min
Original Note:
Today's Communication/Plan
-
see A/P
Assessment / Plan
Assessment / Plan
Gen: NAD, awake and alert
Eyes: EOMI, PERRLA, no scleral icterus.
Neck: supple.
CV: RRR, +S1/S2, no m/r/g.
Resp: CTAB, no rales, wheezes, or rhonchi.
Abd: +BS, soft, NT, ND
Skin: No rashes.
Neuro: CN 2-12 intact, non-focal.
Psych: Normal mood and affect.
CT head: No acute intracranial abnormality noted.
CXR: No active cardiopulmonary disease.
Renal U/S: No hydronephrosis on either side. Mild cortical thinning on each side, suggestive of medical renal disease.
A/P:
# JOSEPH on CKD3b, presented with generalized weakness
Cr 2.0 today, was 3.6 on admission; baseline SCr around 1.7
Off IVF
KUS with cortical thinning suggestive of medical renal disease
no retention on bladder scan
renal following
PT OT recc SNF
# one fever 100.4 F on 10/20/23, no fever since.
Blood culture negative, off Cefepime.
ID signed off.
# IDDM:
a1c 8.7%
cont Lantus/premeal Novolog at reduced dose
SSI/accuchecks
Other problems:
Dementia: Cont Aricept
Hyperlipidemia
Urinary incontinence
DNR/heparin
Dispo: pending decision. PT recc SNF, pt prefers home. plan on speaking to pt
Anticipated Discharge: Within 24 hours
Subjective/Interval History
-
Date of Service: October 23, 2023
Objective Data
-
Labs:
Laboratory Results
10/23/23
06:19
WBC 5.6
Hgb 12.1 L
Hct 35.3 L
Plt Count 147
Sodium 139
Potassium 5.5 H
Chloride 103
Carbon Dioxide 29
BUN 19
Creatinine 2.0 H
Glucose 129 H
Calcium 9.1
Vital Signs:
Vital Signs
Temp Pulse Resp BP Pulse Ox
37.6 C 63 16 148/68 98
10/23/23 08:10 10/23/23 08:10 10/23/23 08:10 10/23/23 08:10 10/23/23 08:10
I&O
10/22/23 10/23/23 10/24/23
06:59 06:59 06:59
Intake Total 1080 / 1080 960 / 960
Output Total 150 / 150
Balance 930 / 930 960 / 960
Review of Systems
-
All other systems: Reviewed and negative
Data Reviewed
-
Labs: Labs Reviewed by me
--- NOTE | 2023-10-23 11:12 | W.PN.NEPH.PH ---
Today's Communication / Plan
-
lokelma
Assessment/Plan
-
Assessment
acute kidney injury
CKD 3B, 1.7
Dementia
Diabetes mellitus type 2
BPH
Confusion, weakness
Falls decreased appetite
Plan
no ATN
follow BMP
lokelma today
dc planning
-
-
Date of Service: October 23, 2023
CC / HPI / ROS
-
Chief Complaint:
JOSEPH on CKD
History of Present Illness:
JOSEPH/Cr down to 2.0
BP stable
K high 5.5
Review of Systems:
feeling well
no CP/SOB
Labs
-
Labs:
WBC 5.6 10^3/uL (4.8-10.8) 10/23/23 06:19
RBC 3.89 10^6/uL (4.70-6.10) L 10/23/23 06:19
Hgb 12.1 g/dL (13.0-18.0) L 10/23/23 06:19
Hct 35.3 % (39.0-52.0) L 10/23/23 06:19
Plt Count 147 10^3/uL (130-400) 10/23/23 06:19
Sodium 139 mmol/L (135-145) 10/23/23 06:19
Potassium 5.5 mmol/L (3.5-5.1) H 10/23/23 06:19
Chloride 103 mmol/L (98-107) 10/23/23 06:19
Carbon Dioxide 29 mmol/L (22-30) 10/23/23 06:19
BUN 19 mg/dl (9-20) 10/23/23 06:19
Creatinine 2.0 mg/dL (0.7-1.3) H 10/23/23 06:19
eGFR 32.71 10/23/23 06:19
Glucose 129 mg/dl (70-99) H 10/23/23 06:19
Calcium 9.1 mg/dl (8.4-10.2) 10/23/23 06:19
Albumin 4.0 g/dl (3.5-5.0) 10/20/23 10:19
Physical Exam
-
Vital Signs:
Vital Signs
Temp Pulse Resp BP Pulse Ox
99.6 F 63 16 148/68 98
10/23/23 08:10 10/23/23 08:10 10/23/23 08:10 10/23/23 08:10 10/23/23 08:10
Cardiovascular:: Regular rate and rhythm
Respiratory:: Bilateral: Coarse
Lung Excursion:: Normal
Abdomen:: Nontender and Soft
Bowel Sounds:: Normal
Extremity Edema:: None: Bilateral:
--- NOTE | 2023-10-23 11:26 | CM ---
Chart reviewed and patient is for discharge to home with spouse, patient's spouse has declined the need for visiting nurses at discharge.
Plan; Home no needs.
[2023-10-23 11:49] LABS: Glucose - Point of Care 310 mg/dl (70-99)
[2023-10-23] MEDS: NOVOLOG FLEXPEN-MODERATE RESISTANCE 7 UNITS SC (12:05)
[2023-10-23] MEDS: LOKELMA 5 GRAM PO (12:06)
[2023-10-23 12:16] VITALS: BP 144/73; PULSE 62; O2SAT 95
[2023-10-23 12:30] VITALS: BP 144/73; PULSE 62; O2SAT 95
[2023-10-23 13:23] VITALS: BP 125/70
--- NOTE | 2023-10-23 13:35 | W.DCSUMMARY ---
Discharge Summary
Discharge Data
Date of Admission: 10/21/23
Date of Discharge: 10/23/23
-
Pending Results: No
Hospital Course
Principal Diagnosis:
Generalized weakness, due to acute kidney injury (JOSEPH) on chronic kidney disease (CKD) stage III
Chronic Diagnoses:�
Insulin-dependent diabetes, A1c 8.7% this admission
Dementia on Aricept
Hyperlipidemia
Urinary incontinence
Consultations:�
Nephrology
Infectious disease
Procedures:�
None
Clinical course:�
This is a 83-year-old male, with past medical history as stated above, who presented with generalized weakness
Problem 1:
JOSEPH on CKD3b, presented with generalized weakness.
The patient's serum creatinine was at 3.6 on admission, and trended down to 2.0 on the day of discharge. His baseline serum creatinine is around 1.7.
He received IV fluid which was subsequently discontinued.
His kidney ultrasound noted cortical thinning suggestive of medical renal disease.
He has no retention on bladder scan.
He was recommended by PT OT for discharge to SNF, however the patient prefers to go home, hence home health was arranged for the patient for return home.
Problem 2:
One fever 100.4 F on 10/20/23, no fever since.
Since his blood culture was negative, empiric antibiotic cefepime was discontinued per ID.
As for the rest of his medical problems, they were stable during his hospital stay.
Discharge Plan
-
Patient Disposition: Home with Home Care
Discharge Diagnosis/Procedures: acute kidney injury on chronic kidney disease stage 3 (presented with generalized weakness)
Condition: Fair
Diet: As tolerated and Diabetic, Carb Controlled
Activity: As tolerated
Driving Restrictions: As prior to admission
Blood Work: BMP with your PCP
Referrals:
Todd Campbell MD [Family Provider] - in less than 1 week
Prescriptions:
Continued
tamsulosin 0.4 MG capsule
0.4 mg PO QPM
donepezil 10 MG tablet
10 mg PO HS
insulin aspart U-100 [Novolog U-100 Insulin aspart] 100 unit/mL Solution
5 unit SC DAILY
rosuvastatin 40 mg Tablet
40 mg PO HS
escitalopram oxalate [Lexapro] 10 mg Tablet
30 mg PO QPM
insulin aspart U-100 [Novolog FlexPen U-100 Insulin] 100 unit/mL (3 mL) Insulin Pen
10 unit SC NOON
insulin aspart U-100 [Novolog FlexPen U-100 Insulin] 100 unit/mL (3 mL) Insulin Pen
8 unit SC QPM
insulin glargine [Lantus Solostar U-100 Insulin] 100 unit/mL (3 mL) Insulin Pen
22 unit SC HS
Discharge Orders:
Discharge Patient (As Directed); Ordered 10/23/23
Ordered By: Eunice Covarrubias
Discharge Date and Time
Discharge Date/Time: 10/23/23 13:25
Print Language: IRISH
== END 2023-10-23 13:25 | disposition home or self-care (01) | DRG 684 ==
LOC: 4 WEST ACU 11:20
PROVIDERS: Internal Medicine; ADMITTING PHYSICIAN Internal Medicine; ATTENDING PHYSICIAN Internal Medicine; CONSULT PHYSICIAN Internal Medicine Infectious Disease; CONSULT PHYSICIAN Specialist; EMERGENCY PHYSICIAN Emergency Medicine; FAMILY PHYSICIAN Family Medicine
DX: N17.9 Acute kidney failure, unspecified (principal); G30.9 Alzheimer's disease, unspecified; F02.80 Dementia in other diseases classified elsewhere, unspecified severity, without behavioral disturbance, psychotic disturbance, mood disturbance, and anxiety; E11.22 Type 2 diabetes mellitus with diabetic chronic kidney disease; N18.32 Chronic kidney disease, stage 3b; E78.5 Hyperlipidemia, unspecified; N40.1 Benign prostatic hyperplasia with lower urinary tract symptoms; N39.3 Stress incontinence (female) (male); R50.9 Fever, unspecified; R53.1 Weakness; R26.89 Other abnormalities of gait and mobility; Z79.4 Long term (current) use of insulin; Z79.899 Other long term (current) drug therapy; Z87.19 Personal history of other diseases of the digestive system; Z11.52 Encounter for screening for COVID-19
CPT/HCPCS: 70450; 71046; 76775; 80048; 80053; 81003; 81015; 82570; 82607; 82962; 83036; 83605; 83735; 84300; 84443; 85025; 85027; 87040; 87502; 87641; 87811; 93005; 97116; 97163; 97167; 97530; 97535; 99285

== ENCOUNTER 2024-05-15 07:21 | Inpatient (IN) | payer OTHER, SELFPAY ==
[2024-05-14 11:11] VITALS: BP 92/57
[2024-05-14 11:43] LABS: % Basophils 0.7 % (0-2); % Eosinophils 2.4 % (0-6); % Immature Granulocytes 0.3 % (0-0.5); % Lymphocytes 13.9 % (20.5-51.1); % Monocytes 5.9 % (1.7-9.3); % Neutrophils 76.8 % (42.2-75.2); Absolute Basophils 0.1 10^3/uL (0-0.2); Absolute Eosinophils 0.2 10^3/uL (0-0.7); Absolute Lymphocytes 1.1 10^3/uL (1.2-3.4); Absolute Monocytes 0.5 10^3/uL (0.1-0.6); Absolute Neutrophils 5.9 10^3/uL (1.4-6.5); Hematocrit 38.8 % (39.0-52.0); Hemoglobin 12.9 g/dL (13.0-18.0); Mean Corp Hgb Conc. 33.2 g/dL (33.0-37.0); Mean Corpuscular Hgb 31.4 pg (27.0-31.0); Mean Corpuscular Volume 94.4 fL (80.0-94.0); Mean Platelet Volume 11.3 fL (7.4-10.4); Nucleated Red Blood Cells % 0 % (-); Platelet Count 131 10^3/uL (130-400); Red Blood Cell Count 4.11 10^6/uL (4.70-6.10); Red Cell Dist. Width 12.7 % (11.5-14.5); White Blood Cell Count 7.6 10^3/uL (4.8-10.8)
[2024-05-14] MEDS: NSS 500 IV (11:44)
--- NOTE | 2024-05-14 11:50 | ED.GENMED ---
History of Present Illness
General
Chief Complaint: Weakness
Source: patient and ambulance crew
Exam Limitations: altered mental status and dementia
Time Seen by Provider: 05/14/24 11:15
Nursing documentation reviewed up to this point in time: agreed with
History of Present Illness
History of Present Illness:
83-year-old male past medical history of late stage dementia, hypertension hyperlipidemia, diabetes presenting to the emergency department today with concerns of generalized weakness fatigue and hypotension. He denies any specific symptoms but is
confused.
Past History
Past History
ED Past Medical History: Cancer (Skin CA), GERD, HTN, Hypercholesterolemia, NIDDM and Other (Alzheimer's, balance problems, GERD, stress incontinence, ambulatory dysfunction, PNA, )
ED Past Surgical History: Orthopedic (Neck surgery, Knee surgery) and Other (Hernia surgery, sinus surgery, Eye lid surgery)
Social History
Tobacco: Non-smoker
Alcohol: Occasional
Drug: None
Personal:
Living: with family
Employment: Retired
Review of Systems
Review of Systems
Allergies reviewed?: Yes
All Other Systems: ROS reviewed and negative except as documented in HPI and ROS
Phy Exam
Physical Exam
Physical Exam:
GENERAL: Alert , in no apparent distress
EYE: pupils equal and reactive
NECK: Supple, no significant adenopathy.
ENT: o/p clr, mmm.
CARDIAC: Regular rate and rhythm .
LUNGS: Clear breath sounds bilaterally, no acute respiratory distress, no wheezes/rales/rhonchi
ABDOMEN: Soft, without focal tenderness, no r/g, no cvat
NEUROLOGICAL: Alert, no focal neuro deficits
SKIN: Warm and dry, skin intact.
MUSCULOSKELETAL: No edema, well perfused.
PSYCH: Normal and appropriate interaction.
Course
Orders/Labs/Results
Orders:
Orders
05/14/24 11:23
Cardiac Monitoring- Treatment ONCE
05/14/24 11:24
Electrocardiogram (*1) Stat
Reason for Study: Abdominal Pain
EKG- Treatment ONCE
0.9% Sodium Chloride 500 ml [Nss] 500 ml IV BOLUS
05/14/24 11:29
Complete Blood Count/With Diff Urgent
Comprehensive Metabolic Panel Urgent
Lipase Urgent
Influenza A+B Rapid Molecular Urgent
SAADIA Source: Nasal Swab
Specimen Description:
05/14/24 11:30
COVID-19 Antigen Urgent
Source: Nasal Swab
Lactic Acid Urgent
05/14/24 11:34
Urinalysis Reflex To Culture Urgent
Date Specimen was Collected: 05/14/24
Time Specimen was Collected: 11:34
Urine Microscopic Reflex Cult Urgent
05/14/24 13:48
Oseltamivir Phosphate [Tamiflu] 75 mg PO NOW STA
Chest [CR Chest - 2 Views ] Urgent
Comment:
Reason For Exam: sob flu
05/14/24 14:04
Admit/Transfer Patient As Directed
Co-Sign Provider:
Level of Care: Observation services
Assign to:: Medical/Surgical
Physician / Group: kobi
Diagnosis: influenza
05/14/24 14:05
Code Status As Directed
Resuscitation Status: Do not resuscitate
Reached after discussion with pt or family/Healthcare POA: Yes
DNR Bracelet Application ONCE
PRN Pain Medication Management As Directed
May give lesser potent ordered pain med per pt: Yes
preference::
Protocol:: Medication orders for pain may be administered in a
manner that supports deferring to patient preference
when the pt is:
- Requesting an ordered lesser potent pain medication.
Least to most potent pain medications are defined
as: acetaminophen < NSAID < tramadol < opioids
(morphine, oxycodone, hydromorphone).
- Requesting a lesser dose of the same medication IF
ORDERED.
- Requesting a less intrusive route of administration
if both routes are prescribed by the provider (PO <
IV).
Abnormal Lab Results
05/14/24 05/14/24 05/14/24
11: 11:30 11:34
RBC 4.11 L 10^6/uL
(4.70-6.10)
Hgb 12.9 L g/dL
(13.0-18.0)
Hct 38.8 L %
(39.0-52.0)
MCV 94.4 H fL
(80.0-94.0)
MCH 31.4 H pg
(27.0-31.0)
MPV 11.3 H fL
(7.4-10.4)
Absolute Lymphs (auto) 1.1 L 10^3/uL
(1.2-3.4)
Neutrophils % 76.8 H %
(42.2-75.2)
Lymphocytes % 13.9 L %
(20.5-51.1)
Potassium 5.2 H mmol/L
(3.5-5.1)
Creatinine 2.3 H mg/dL
(0.7-1.3)
Glucose 290 H mg/dl
(70-99)
Lactic Acid 2.7 H mmol/L
(0.7-2.0)
Alkaline Phosphatase 144 H U/L
(38-126)
Ur Occult Blood Reflex 1+ A
(Negative)
Urine Albumin (Reflex) 2+ A
(Neg - Trace)
05/14/24 11:29
05/14/24 11:29
Vital Signs
Initial and Last Documented VS:
Initial Vital Signs
Temp Pulse Resp BP Pulse Ox
98.7 F 98 18 92/57 98
05/14/24 11:11 05/14/24 11:11 05/14/24 11:11 05/14/24 11:11 05/14/24 11:11
Last Documented Vital Signs
Temp Pulse Resp BP Pulse Ox
98.7 F 75 17 179/93 89
05/14/24 11:11 05/14/24 13:00 05/14/24 13:00 05/14/24 13:00 05/14/24 13:00
MDM/Problems Addressed
MDM/Problems Addressed:
84-year-old male presenting to the emergency department today with concerns of generalized weakness fatigue hypotension from home. Slightly hypertensive upon arrival in the needs of these. Patient is confused but does know where he is. Denies any
specific symptoms at this time. labs here showing positive influenza otherwise patient does have elevated lactic acid. Plan to give fluids and repeat glucose elevated. Family was contacted they claims that he was unable to care for himself at
home secondary to his baseline dementia with worsening today has an elderly that lives at home with him who is also sick at at the moment. Concerning this plan for treatment and monitoring.
*Critical Care Note
Total Time (30-74mins, 75-104mins- exclusive of procedures): Not Applicable
ED Attending Note
-
Portions of this chart may have been created with voice recognition software.� Occasional wrong word or��sound alike� substitutions may have occurred due to the inherent limitations of voice recognition software.
Discharge Plan
Departure
Patient Disposition: Admit
Date of Disposition: 05/14/24
Time of Disposition: 14:23
Admit to: Med/Surg
Admit to doctor: Kobi
Presentation/result/management discussed w/ accepting MD/DO: Hospitalist
Patient with high blood pressure during this ER visit?: No
Condition: Good
Covid-19: Not Applicable
Discharge Problem:
Influenza, Ambulatory dysfunction, Generalized weakness
Interventions
Interventions:
*Risk Screen - Suicide Last Done: 05/14/24 11:11
*General Assessment Last Done: 05/14/24 11:45
*Neglect/Abuse Screening Last Done: 05/14/24 11:11
ED- Cardiac Assessment Last Done: 05/14/24 11:45
ED- Neurological Assessment Last Done: 05/14/24 11:45
ED- Pulmonary Assessment Last Done: 05/14/24 11:45
[2024-05-14 11:52] LABS: Lactic Acid 2.7 mmol/L (0.7-2.0)
[2024-05-14 11:58] LABS: Urine Albumin 2+ (Neg - Trace); Urine Bilirubin Negative (Negative); Urine Character Clear (Clear); Urine Color Yellow; Urine Glucose Negative (Negative); Urine Ketone Negative (Negative); Urine Leukocyte Negative (Negative); Urine Nitrite Negative (Negative); Urine Occult Blood 1+ (Negative); Urine Urobilinogen Negative (Neg - 1+)
[2024-05-14 11:58] LABS: ALT (SGPT) 42 U/L (0-50); AST (SGOT) 40 U/L (17-59); Albumin 3.8 g/dl (3.5-5.0); Alkaline Phosphatase 144 U/L (38-126); Blood Urea Nitrogen 20 mg/dl (9-20); Carbon Dioxide 26 mmol/L (22-30); Chloride 104 mmol/L (98-107); Glucose 290 mg/dl (70-99); Lipase 226 U/L (23-300); Potassium 5.2 mmol/L (3.5-5.1); Sodium 138 mmol/L (135-145); Total Bilirubin 0.5 mg/dl (0.2-1.3); Total Protein 7.2 g/dl (6.3-8.2); eGFR 27.66
[2024-05-14 12:00] VITALS: BP 161/85
[2024-05-14 12:09] LABS: COVID-19 Antigen Negative (Negative)
[2024-05-14 12:15] LABS: Urine Amorphous Seen; Urine Mucus Moderate
[2024-05-14 12:17] LABS: Urine Squamous Cell 0-2 /LPF (Few)
[2024-05-14 12:19] LABS: Urine Red Blood Cell 0-2 /HPF (0-2); Urine White Cell 0-2 /HPF (0-5)
[2024-05-14 13:00] VITALS: BP 179/93
[2024-05-14 14:00] VITALS: BP 151/62
--- NOTE | 2024-05-14 14:06 | HPS.HSE ---
Family Physician
-
Family Physician: INTERVIEWE UNKNOWN - PT NOT
Chief Complaint
-
weakness
History of Present Illness
83-year-old male past medical history of CKD 3B, diabetes, dementia, hyperlipidemia, urine stress incontinence, GERD, hypertension, skin cancer presenting with generalized weakness, fatigue and low blood pressure and confusion. Patient does not
know why he is here and denies any complaints apart from cough for a week. Denies shortness of breath. He denies any nausea vomiting or diarrhea or fevers or chills or bodyaches or urinary symptoms.
He drinks alcohol occasionally. Denies smoking.
Medical History
Past Medical History
Past Medical History: Reports Other (CKD 3B, diabetes, dementia, hyperlipidemia, urine stress incontinence, GERD, hypertension, skin cancer)
Past Surgical History: Reports Other (Orthopedic (Neck surgery, Knee surgery) and Other (Hernia surgery, sinus surgery, Eye lid surgery))
Social History
Tobacco: Non-smoker
Alcohol: Occasional
Drug: None
Family History
Family History: Not pertinent
Allergies / Home Medications
Allergies reflects when Allergies were last updated in [facility].
Home Medications with original date entered in [facility]
Allergy/Medication List:
Allergies
Allergy/AdvReac Type Severity Reaction Status Date / Time
No Known Allergies Allergy Verified 05/14/24 11:12
Home Medications
donepezil 10 mg tablet 10 mg PO HS Memory issues 09/15/19
tamsulosin 0.4 mg capsule 0.4 mg PO QPM Urinary issue 09/15/19
insulin aspart U-100 100 unit/mL subcutaneous solution (Novolog U-100 Insulin aspart) 5 unit SC DAILY Diabetes 09/29/22
escitalopram oxalate 10 mg tablet (Lexapro) 30 mg PO QPM Mental Health/Anxiety 10/20/23
insulin aspart U-100 100 unit/mL (3 mL) subcutaneous pen (Novolog FlexPen U-100 Insulin aspart) 8 unit SC QPM Diabetes 10/20/23
insulin aspart U-100 100 unit/mL (3 mL) subcutaneous pen (Novolog FlexPen U-100 Insulin aspart) 10 unit SC NOON Diabetes 10/20/23
insulin glargine 100 unit/mL (3 mL) subcutaneous pen (Lantus Solostar U-100 Insulin) 22 unit SC HS Diabetes 10/20/23
rosuvastatin 40 mg tablet 40 mg PO HS High Cholesterol 10/20/23
Review of Systems
-
History Source: Patient
A 12 point ROS was completed and negative except as noted: Yes
Constitutional: Reports No Symptoms
EENT: Reports No Symptoms
Respiratory: Reports See HPI
Cardiac: Reports No Symptoms
Abdomen/GI: Reports No Symptoms
: Reports No Symptoms
Musculoskeletal: Reports No Symptoms
Skin: Reports No Symptoms
Neurological: Reports No Symptoms
Endocrine: Reports No Symptoms
Hematologic/Lymphatic: Reports No Symptoms
Psych: Reports No Symptoms
Physical Exam
Vital Signs
Vital Signs
Temp Pulse Resp BP Pulse Ox
98.7 F 75 17 179/93 89
05/14/24 11:11 05/14/24 13:00 05/14/24 13:00 05/14/24 13:00 05/14/24 13:00
Physical Exam
General: Well Developed, Well Nourished and No Apparent Distress
HEENT: NormoCephalic, Moist mucous membranes and Atraumatic
Respiratory: Clear
Cardiac: S1/S2 and Regular Rhythm; No Murmur or Rub
GI: Soft, Non Tender, Non Distended and Normal Bowel Sounds; No Organomegaly
Rectal: Deferred by Provider
Musculoskeletal: No Clubbing, No Cyanosis and No Edema
Skin: No Rash
Neuro: Nonfocal/grossly intact
Laboratory Results
-
05/14/24 11:29
05/14/24 11:29
Laboratory Results
Lactic Acid 2.7 mmol/L (0.7-2.0) H 05/14/24 11:30
Total Bilirubin 0.5 mg/dl (0.2-1.3) 05/14/24 11:29
AST 40 U/L (17-59) 05/14/24 11:29
ALT 42 U/L (0-50) 05/14/24 11:29
Alkaline Phosphatase 144 U/L (38-126) H 05/14/24 11:29
Lipase 226 U/L (23-300) 05/14/24 11:29
Data Reviewed
-
Lab Data: Labs Reviewed by me
Old Records: Reviewed
Impression/Plan
-
IMPRESSION:
PLAN:
# Influenza A infection
-Urinalysis negative
-Initially hypotensive with systolic of 90 but has improved with IV fluids
-Chest x-ray pending
-Tamiflu started
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
#Hyperkalemia
-Renal function close to baseline
-IV fluids were given
Dementia
-Continue donepezil, Lexapro
Hyperlipidemia
-Continue statin
Urinary stress incontinence
-Continue tamsulosin
GERD
Essential hypertension
Type 2 diabetes
-Continue NovoLog, Lantus
Skin cancer
DNR/DNI
DVT prophylaxis�heparin
Regular diet
[2024-05-14] MEDS: TAMIFLU 75 MG PO (14:21)
[2024-05-14 19:02] LABS: Lactic Acid 1.2 mmol/L (0.7-2.0)
[2024-05-14 20:09] VITALS: BP 164/92
[2024-05-14 21:48] LABS: Glucose - Point of Care 168 mg/dl (70-99)
[2024-05-14] MEDS: HEPARIN 5000 UNITS SC (21:51)
[2024-05-14] MEDS: LANTUS 0.2 UNITS SC (21:51)
[2024-05-14] MEDS: ARICEPT 10 MG PO (21:52)
[2024-05-14] MEDS: CRESTOR 10 MG PO (21:52)
[2024-05-14 23:05] VITALS: BP 157/62
--- NOTE | 2024-05-15 05:11 | PTCARENOTE ---
Pt admitted into 339-2 while waiting for 324 to be cleaned and was pulled over from stretcher to bed. Pt aaox1, no c/o pain, and VSS. Pt placed on bed alarm for safety and oriented to room. Report given to ARCENIO Hagen. Plan of care ongoing.
[2024-05-15] MEDS: TYLENOL 650 MG PO ×2 (05:41→17:40)
[2024-05-15 06:17] LABS: % Basophils 0.8 % (0-2); % Eosinophils 0.4 % (0-6); % Immature Granulocytes 0.3 % (0-0.5); % Lymphocytes 13.5 % (20.5-51.1); % Monocytes 4.4 % (1.7-9.3); % Neutrophils 80.6 % (42.2-75.2); Absolute Basophils 0.1 10^3/uL (0-0.2); Absolute Monocytes 0.3 10^3/uL (0.1-0.6); Absolute Neutrophils 5.9 10^3/uL (1.4-6.5); Hematocrit 37.1 % (39.0-52.0); Hemoglobin 12.5 g/dL (13.0-18.0); Mean Corp Hgb Conc. 33.7 g/dL (33.0-37.0); Mean Corpuscular Hgb 31.1 pg (27.0-31.0); Mean Corpuscular Volume 92.3 fL (80.0-94.0); Mean Platelet Volume 11.2 fL (7.4-10.4); Nucleated Red Blood Cells % 0 % (-); Platelet Count 126 10^3/uL (130-400); Red Blood Cell Count 4.02 10^6/uL (4.70-6.10); Red Cell Dist. Width 12.8 % (11.5-14.5); White Blood Cell Count 7.3 10^3/uL (4.8-10.8)
[2024-05-15 06:59] LABS: ALT (SGPT) 40 U/L (0-50); AST (SGOT) 102 U/L (17-59); Albumin 4.1 g/dl (3.5-5.0); Alkaline Phosphatase 99 U/L (38-126); Blood Urea Nitrogen 20 mg/dl (9-20); Calcium 8.9 mg/dl (8.4-10.2); Carbon Dioxide 23 mmol/L (22-30); Chloride 100 mmol/L (98-107); Estimated Creatinine Clearance 28 ml/min; Glucose 169 mg/dl (70-99); Potassium 4.4 mmol/L (3.5-5.1); Sodium 138 mmol/L (135-145); Total Bilirubin 0.9 mg/dl (0.2-1.3); Total Protein 7.2 g/dl (6.3-8.2); eGFR 32.71
[2024-05-15 07:22] LABS: Glycohemoglobin (HgbA1c) 9.2 % (4.0-5.6)
[2024-05-15 07:37] VITALS: BP 97/60
[2024-05-15 07:46] LABS: Glucose - Point of Care 157 mg/dl (70-99)
[2024-05-15] MEDS: HEPARIN 5000 UNITS SC ×2 (09:10→21:09)
[2024-05-15] MEDS: NOVOLOG FLEXPEN-LOW RESISTANCE 1 UNITS SC ×2 (09:11→17:38)
[2024-05-15] MEDS: NOVOLOG FLEXPEN 5 UNITS SC (09:11)
[2024-05-15 09:43] VITALS: BP 156/71; PULSE 67; O2SAT 95
[2024-05-15 09:59] VITALS: BP 156/71; PULSE 67; O2SAT 95
[2024-05-15 11:30] LABS: Glucose - Point of Care 299 mg/dl (70-99)
[2024-05-15] MEDS: NOVOLOG FLEXPEN 10 UNITS SC (12:08)
[2024-05-15] MEDS: NOVOLOG FLEXPEN-LOW RESISTANCE 3 UNITS SC (12:09)
--- NOTE | 2024-05-15 12:15 | W.PN.HOSP.TC ---
Today's Communication/Plan
-
.
Assessment / Plan
Assessment / Plan
Physical Exam
Constitutional: Comfortable
Head: no deformity
Eyes: No Conjunctival Hemorrhage and Sclera Anicteric
Cardiovascular: Regular Rate and S1/S2
Pulmonary: Negative Wheezes, Rales or Rhonchi
Gastrointestinal: Soft, Non Tender and Non Distended
Genito-Urinary: Negative CVA Tenderness
Extremities: Negative Edema
Neurological: Awake, he follows commands
Psych: calm
Influenza A infection
# Fever due to flu
- CXR no pneumonia
- continue renally adjusted oseltamivir 30mg po qd (d2) x 5 days
-Continue supportive care
- Follow temps.
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
#Hyperkalemia
-Renal function close to baseline
-IV fluids were given
Dementia
-Continue donepezil, Lexapro
Hyperlipidemia
-Continue statin
Urinary stress incontinence
-Continue tamsulosin
GERD
Essential hypertension
Type 2 diabetes
-Continue NovoLog, Lantus
Skin cancer
DNR/DNI
DVT prophylaxis�heparin
Total time spent to see the patient, examine the patient, review data and lab results, discuss treatment plan with patient and nursing staff around 55 minutes
Anticipated Discharge: 24 - 48 hours
Subjective/Interval History
-
Date of Service: May 15, 2024
Objective Data
-
Labs:
Laboratory Results
05/15/24
05:53
WBC 7.3
Hgb 12.5 L
Hct 37.1 L
Plt Count 126 L
Sodium 138
Potassium 4.4
Chloride 100
Carbon Dioxide 23
BUN 20
Creatinine 2.0 H
Glucose 169 H
Calcium 8.9
Total Bilirubin 0.9
AST 102 H
ALT 40
Alkaline Phosphatase 99
Vital Signs:
Vital Signs
Temp Pulse Resp BP Pulse Ox
98.4 F 92 16 97/60 94
05/15/24 07:37 05/15/24 07:37 05/15/24 07:37 05/15/24 07:37 05/15/24 07:37
I&O
05/14/24 05/15/24 05/16/24
06:59 06:59 06:59
Intake Total 480 / 480
Balance 480 / 480
--- NOTE | 2024-05-15 13:10 | CON.ID ---
Consultation
-
Date/Time Consultation Requested: May 15, 2024 0643
Date/Time Consultation Performed: May 15, 2024 1310
Requesting Provider: Dr. Kenya Wiley
Performing Provider: Dr. Alexia Ty
Reason for Consultation: Fever, influenza
Chief Complaint / Past History
Chief Complaint
Cough
History of Present Illness
History obtained from review medical records since patient has dementia and is a very poor historian. He is a 83-year-old male with Alzheimer's dementia, diabetes mellitus, CKD 3, stress incontinence who presented to the hospital late 05/14 due to
weakness, change in mental status, and low BP. In ED. Influenza A positive. BP in 90's responded to IV fluids. He is not sure whether or not he is up to date with influenza vaccine. He c/o 2 days of rhinorrhea, dry cough, and poor appetite. No SOB.
No DODSON. No fever or chills. T= 100.6 this am.
Past History
Additional Past Medical History:
Alzheimer dementia
Diabetes mellitus
Dyslipidemia
CKD3
BPH
Stress incontinence
ambulatory dysfunction
knee surgery
Allergy History:
No Known Allergies Allergy (Verified 05/14/24 11:12)
Medications Reviewed: Yes
Current Antibiotics:
Oseltamivir d2
Social History
Tobacco: Non-Smoker
Alcohol: None
Drug: None
Personal:
Living: With Family
Family History
Family History: Not Pertinent
Review of Systems
Review of Systems
General: Change in Appetite
HEENT: Negative Pharyngitis
Cardiovascular: Negative Chest Pain or Dyspnea
Respiratory: Cough; Negative Dyspnea or Sputum Production
Gasteroenterology: Negative Nausea, Vomiting or Diarrhea
Genital / Urological: Negative Dysuria or Flank Pain
Endocrine: Weakness and Fatigue
All systems: All other systems were reviewed and were negative
Vital Signs
Temp Pulse Resp BP Pulse Ox
98.4 F 92 16 97/60 94
05/15/24 07:37 05/15/24 07:37 05/15/24 07:37 05/15/24 07:37 05/15/24 07:37
Selected Entries
05/15/24
05:40
Temp 100.6 F H
Physical Exam
Physical Exam
Constitutional: Comfortable
Head: Other (No frontal or maxillary sinus tenderness)
Eyes: No Conjunctival Hemorrhage and Sclera Anicteric
Cardiovascular: Regular Rate and S1/S2
Pulmonary: Other (Poor respiratory effort); Negative Wheezes, Rales or Rhonchi
Gastrointestinal: Soft, Non Tender and Non Distended
Genito-Urinary: Negative CVA Tenderness
Extremities: Negative Edema
Neurological: Awake
Lab / Diagnostic Study Results
05/15/24 05:53
05/15/24 05:53
Abs Immat Gran (auto) 0.0 10^3/uL (0-0.05) 05/15/24 05:53
Absolute Neuts (auto) 5.9 10^3/uL (1.4-6.5) 05/15/24 05:53
Absolute Lymphs (auto) 1.0 10^3/uL (1.2-3.4) L 05/15/24 05:53
Absolute Monos (auto) 0.3 10^3/uL (0.1-0.6) 05/15/24 05:53
Absolute Basos (auto) 0.1 10^3/uL (0-0.2) 05/15/24 05:53
Immature Gran % 0.3 % (0-0.5) 05/15/24 05:53
Neutrophils % 80.6 % (42.2-75.2) H 05/15/24 05:53
Lymphocytes % 13.5 % (20.5-51.1) L 05/15/24 05:53
Monocytes % 4.4 % (1.7-9.3) 05/15/24 05:53
Eosinophils % 0.4 % (0-6) 05/15/24 05:53
Basophils % 0.8 % (0-2) 05/15/24 05:53
Lactic Acid 1.2 mmol/L (0.7-2.0) 05/14/24 18:39
Ur Squamous Epith Cells 0-2 /LPF (Few) 05/14/24 11:34
Microbiology Results
Micro:
05/15/24 07:29 Blood Culture - Pending
Blood/Venous
05/14/24 11:29 Influenza Types A & B (HANDY) - Final
Nasal Swab Influenza A Positive, NAAT
05/14/24 CXR: No acute cardiopulmonary process.
Assessment / Plan
# Influenza A infection
# Fever due to flu
- CXR no pneumonia
- continue renally adjusted oseltamivir 30mg po qd (d2) x 5 days
-Continue supportive care
- Follow temps.
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
Alzheimer dementia
Diabetes mellitus
Dyslipidemia
CKD3
BPH
Stress incontinence
ambulatory dysfunction
knee surgery
[2024-05-15] MEDS: TAMIFLU 30 MG PO (14:28)
[2024-05-15 15:26] VITALS: BP 169/71
--- NOTE | 2024-05-15 16:25 | CM ---
Patient seen at bedside, Patient daughterKenya states that patient resides with her mother in a bi-level home with three steps to enter. The patient has a rolling walker, wheelchair, and shower grab bars. The patient has had [facility] in the past
and been to [facility] and [facility]. The patient's pharmacy of choice is [facility]. Therapy recommending SNF and daughter requested referrals to [facility] and [facility]. CM will continue to monitor medical plan for needs at
discharge.
Plan: SNF pending bed availability and authorization.
[2024-05-15 16:41] LABS: Glucose - Point of Care 168 mg/dl (70-99)
[2024-05-15] MEDS: LEXAPRO 30 MG PO (17:40)
[2024-05-15] MEDS: FLOMAX 0.4 MG PO (17:40)
[2024-05-15] MEDS: NOVOLOG FLEXPEN 8 UNITS SC (17:54)
[2024-05-15] MEDS: CRESTOR 10 MG PO (21:10)
[2024-05-15] MEDS: ARICEPT 10 MG PO (21:10)
[2024-05-15 21:15] LABS: Glucose - Point of Care 137 mg/dl (70-99)
[2024-05-15] MEDS: LANTUS 0.2 UNITS SC (21:22)
[2024-05-15 23:15] VITALS: BP 127/78
[2024-05-16 07:44] LABS: Glucose - Point of Care 83 mg/dl (70-99)
[2024-05-16 07:57] VITALS: BP 161/75
[2024-05-16] MEDS: NOVOLOG FLEXPEN-LOW RESISTANCE SC ×3 (08:08→16:50)
[2024-05-16] MEDS: HEPARIN 5000 UNITS SC ×2 (08:08→20:56)
[2024-05-16] MEDS: TYLENOL 650 MG PO (08:12)
[2024-05-16] MEDS: NOVOLOG FLEXPEN SC ×2 (08:12→11:34)
--- NOTE | 2024-05-16 10:01 | W.PN.HOSP.TC ---
Today's Communication/Plan
-
IV fluid, monitor for hypoglycemia, continue with Tamiflu,
Assessment / Plan
Assessment / Plan
Physical Exam
Constitutional: Comfortable
Head: no deformity
Eyes: No Conjunctival Hemorrhage and Sclera Anicteric
Cardiovascular: Regular Rate and S1/S2
Pulmonary: Negative Wheezes, Rales or Rhonchi
Gastrointestinal: Soft, Non Tender and Non Distended
Genito-Urinary: Negative CVA Tenderness
Extremities: Negative Edema
Neurological: Awake, he follows commands
Psych: calm
Influenza A infection
# Fever due to flu
- CXR no pneumonia
He continues to have low-grade temperature with poor appetite
- continue renally adjusted oseltamivir 30mg po qd (d2) x 5 days
-Continue supportive care
- Follow temps.
Appreciate GI input, continue with Tamiflu
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
#Hyperkalemia
-Renal function close to baseline
-IV fluids were given
Dementia
-Continue donepezil, Lexapro
Hyperlipidemia
-Continue statin
Urinary stress incontinence
-Continue tamsulosin
GERD
Essential hypertension
Type 2 diabetes
Hypoglycemia due to poor oral intake, will hold the standing insulin doses and just follow-up with sliding scale as needed. Will give IV fluid with dextrose due to hypoglycemia
-Continue NovoLog, Lantus
Skin cancer
DNR/DNI
DVT prophylaxis�heparin
Total time spent to see the patient, examine the patient, review data and lab results, discuss treatment plan with patient, daughter and nursing staff around 55 minutes
Anticipated Discharge: 24 - 48 hours
Subjective/Interval History
-
Date of Service: May 16, 2024
No complaints per patient, continues to eat poorly per staff, low blood glucose this morning
Objective Data
-
Vital Signs:
Vital Signs
Temp Pulse Resp BP Pulse Ox
100.4 F H 60 16 161/75 93
05/16/24 07:57 05/16/24 07:57 05/16/24 07:57 05/16/24 07:57 05/16/24 07:57
I&O
05/15/24 05/16/24 05/17/24
06:59 06:59 06:59
Intake Total 480 / 480 960 / 960
Balance 480 / 480 960 / 960
[2024-05-16 11:33] LABS: Glucose - Point of Care 69 mg/dl (70-99)
[2024-05-16 11:53] LABS: Glucose - Point of Care 84 mg/dl (70-99)
--- NOTE | 2024-05-16 12:15 | W.PN.ID1 ---
Date of Service
Date of Service: May 16, 2024
Today's Communication
Continue oseltamivir.
Assessment / Plan
# Influenza A infection
# Low grade fever due to flu
- CXR no pneumonia
- continue renally adjusted oseltamivir 30mg po qd (d3) x 5 days
-Continue supportive care
- Follow temps.
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
Alzheimer dementia
Diabetes mellitus
Dyslipidemia
CKD3
BPH
Stress incontinence
ambulatory dysfunction
knee surgery
Chief Complaint
-: Other (Influenza)
Subjective / Review of Systems
Cough as improved. Appetite still poor.
Vital Signs / Physical Exam
Vital Signs
Vital Signs
Temp Pulse Resp BP Pulse Ox
100.4 F H 60 16 161/75 93
05/16/24 07:57 05/16/24 07:57 05/16/24 07:57 05/16/24 07:57 05/16/24 07:57
Physical Exam
Constitutional: No Acute Distress
Cardiovascular: Regular Rate and S1/S2
Pulmonary: Coarse (right base)
Gastrointestinal: Soft, Non Tender, Non Distended and Normal Bowel Sounds
Extremities: Negative Edema
Neurological: Awake and Alert
Objective Data
Lab Data
Lab Results
05/15/24 05:53
05/15/24 05:53
Estimated Creat Clear 28 ml/min 05/15/24 05:53
Lactic Acid 1.2 mmol/L (0.7-2.0) 05/14/24 18:39
Total Bilirubin 0.9 mg/dl (0.2-1.3) 05/15/24 05:53
AST 102 U/L (17-59) H 05/15/24 05:53
ALT 40 U/L (0-50) 05/15/24 05:53
Alkaline Phosphatase 99 U/L (38-126) 05/15/24 05:53
Most recent labs reviewed.
Micro Results:
05/15/24 07:29 Blood Culture - Preliminary
Blood/Venous No Growth in 24 hours- Final report to follow
05/14/24 11:29 Influenza Types A & B (HANDY) - Final
Nasal Swab Influenza A Positive, NAAT
05/14/24 CXR: No acute cardiopulmonary process.
[2024-05-16] MEDS: D5/0.9% SODIUM CHLORIDE 1000 IV (12:30)
[2024-05-16] MEDS: TAMIFLU 30 MG PO (13:21)
[2024-05-16 15:08] VITALS: BP 105/69
[2024-05-16 16:46] LABS: Glucose - Point of Care 131 mg/dl (70-99)
[2024-05-16] MEDS: LEXAPRO 30 MG PO (17:02)
[2024-05-16] MEDS: FLOMAX 0.4 MG PO (17:02)
[2024-05-16] MEDS: ARICEPT 10 MG PO (21:03)
[2024-05-16] MEDS: CRESTOR 10 MG PO (21:03)
[2024-05-16 21:25] LABS: Glucose - Point of Care 89 mg/dl (70-99)
[2024-05-16 23:15] VITALS: BP 146/66
[2024-05-17] MEDS: D5/0.9% SODIUM CHLORIDE 1000 IV ×2 (02:37→14:05)
[2024-05-17 02:46] LABS: Glucose - Point of Care 109 mg/dl (70-99)
[2024-05-17 07:30] VITALS: BP 194/91
[2024-05-17] MEDS: HEPARIN 5000 UNITS SC ×2 (08:25→20:16)
[2024-05-17 08:49] LABS: Glucose - Point of Care 161 mg/dl (70-99)
--- NOTE | 2024-05-17 09:11 | W.PN.HOSP.TC ---
Today's Communication/Plan
-
DC IVF if good oral intake
Start Amlodipine
Assessment / Plan
Assessment / Plan
Physical Exam
Constitutional: Comfortable
Head: no deformity
Eyes: No Conjunctival Hemorrhage and Sclera Anicteric
Cardiovascular: Regular Rate and S1/S2
Pulmonary: mild wheezes at times.
Gastrointestinal: Soft, Non Tender and Non Distended
Genito-Urinary: Negative CVA Tenderness
Extremities: Negative Edema
Neurological: Awake, disoriented , he follows commands
Psych: calm
Influenza A infection
# Fever due to flu
- CXR no pneumonia
No low-grade temperature , no hypoxia, denies cough but he is poor historian.
- continue renally adjusted oseltamivir 30mg po qd (d4) x 5 days
-Continue supportive care
Appreciate ID input, continue with Tamiflu
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
#Hyperkalemia
-Renal function close to baseline
-IV fluids were given
Dementia
-Continue donepezil, Lexapro
Hyperlipidemia
-Continue statin
Urinary stress incontinence
-Continue tamsulosin
GERD
Essential hypertension
not on medications per med list or last discharge date from .
BP is uncontrolled, will start him on amlodipine ( he was discharge on amlodipine in 2022)
# Type 2 diabetes
Hypoglycemia due to poor oral intake, given IVF , now better, holding standing insulin until appetite improves.
-Continue ISS.
Skin cancer
DNR/DNI
DVT prophylaxis�heparin
Total time spent to see the patient, examine the patient, review data and lab results, discuss treatment plan with patient, daughter and nursing staff around 55 minutes
Anticipated Discharge: Within 24 hours
Subjective/Interval History
-
Date of Service: May 17, 2024
No hypoxia
No fevers
Objective Data
-
Vital Signs:
Vital Signs
Temp Pulse Resp BP Pulse Ox
98.4 F 59 18 194/91 94
05/17/24 07:30 05/17/24 07:30 05/17/24 07:30 05/17/24 07:30 05/17/24 07:30
I&O
05/16/24 05/17/24 05/18/24
06:59 06:59 06:59
Intake Total 960 / 960 720 / 720
Balance 960 / 960 720 / 720
[2024-05-17] MEDS: NORVASC 5 MG PO ×2 (09:50→20:15)
[2024-05-17] MEDS: NOVOLOG FLEXPEN-LOW RESISTANCE 1 UNITS SC (09:51)
--- NOTE | 2024-05-17 11:08 | W.PN.ID1 ---
Date of Service
Date of Service: May 17, 2024
Today's Communication
Continue oseltamivir 30mg po qd (d4 of 5)
Assessment / Plan
# Influenza A infection
# Low grade fever due to flu, resolved
- CXR no pneumonia
- continue renally adjusted oseltamivir 30mg po qd (d4 of 5)
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
Alzheimer dementia
Diabetes mellitus
Dyslipidemia
CKD3
BPH
Stress incontinence
ambulatory dysfunction
knee surgery
Chief Complaint
-: Other (Influenza)
Subjective / Review of Systems
Appetite somewhat better.
Cough improving.
Vital Signs / Physical Exam
Vital Signs
Vital Signs
Temp Pulse Resp BP Pulse Ox
98.4 F 59 18 194/91 94
05/17/24 07:30 05/17/24 07:30 05/17/24 07:30 05/17/24 07:30 05/17/24 07:30
Physical Exam
Constitutional: No Acute Distress
Cardiovascular: Regular Rate and S1/S2
Pulmonary: Coarse (right base)
Gastrointestinal: Soft, Non Tender, Non Distended and Normal Bowel Sounds
Extremities: Negative Edema
Neurological: Awake and Alert
Objective Data
Lab Data
Lab Results
05/15/24 05:53
05/15/24 05:53
Estimated Creat Clear 28 ml/min 05/15/24 05:53
Lactic Acid 1.2 mmol/L (0.7-2.0) 05/14/24 18:39
Total Bilirubin 0.9 mg/dl (0.2-1.3) 05/15/24 05:53
AST 102 U/L (17-59) H 05/15/24 05:53
ALT 40 U/L (0-50) 05/15/24 05:53
Alkaline Phosphatase 99 U/L (38-126) 05/15/24 05:53
Most recent labs reviewed.
Micro Results:
05/15/24 07:29 Blood Culture - Preliminary
Blood/Venous No Growth in 48 hours- Final report to follow
05/14/24 11:29 Influenza Types A & B (HANDY) - Final
Nasal Swab Influenza A Positive, NAAT
05/14/24 CXR: No acute cardiopulmonary process.
[2024-05-17 12:09] LABS: Glucose - Point of Care 298 mg/dl (70-99)
[2024-05-17] MEDS: NOVOLOG FLEXPEN-LOW RESISTANCE 3 UNITS SC ×2 (12:39→17:29)
[2024-05-17] MEDS: TAMIFLU 30 MG PO (14:12)
--- NOTE | 2024-05-17 14:46 | PTCARENOTE ---
patient's b/p this am . not on any medications for HTN prior to hospitalization according to med list. denies complaints, has poor appetite, turns with assist x2. started on Norvasc. PO's encouraged. He was receptive to eating cake and
soup that his daughters brought in for him, will continue to monitor.
[2024-05-17 16:00] VITALS: BP 158/78
[2024-05-17 17:12] LABS: Glucose - Point of Care 260 mg/dl (70-99)
[2024-05-17] MEDS: LEXAPRO 30 MG PO (17:27)
[2024-05-17] MEDS: FLOMAX 0.4 MG PO (17:28)
[2024-05-17 22:00] LABS: Glucose - Point of Care 207 mg/dl (70-99)
[2024-05-17] MEDS: ARICEPT 10 MG PO (22:56)
[2024-05-17] MEDS: CRESTOR 10 MG PO (22:56)
[2024-05-17 23:52] VITALS: BP 167/81
[2024-05-18] MEDS: D5/0.9% SODIUM CHLORIDE IV (00:34)
--- NOTE | 2024-05-18 05:00 | PTCARENOTE ---
Pt's appetite improving and drinking, with encouragement. HS blood sugar 207. [employer] Michele notified and IVF discontinued.
[2024-05-18 07:28] VITALS: BP 113/62
[2024-05-18] MEDS: HEPARIN 5000 UNITS SC ×2 (07:44→19:50)
[2024-05-18] MEDS: NORVASC 5 MG PO ×2 (07:44→19:46)
[2024-05-18 07:50] LABS: Glucose - Point of Care 159 mg/dl (70-99)
[2024-05-18] MEDS: NOVOLOG FLEXPEN-LOW RESISTANCE 1 UNITS SC (07:50)
[2024-05-18 07:59] LABS: Hematocrit 37.1 % (39.0-52.0); Hemoglobin 12.5 g/dL (13.0-18.0); Mean Corp Hgb Conc. 33.7 g/dL (33.0-37.0); Mean Corpuscular Hgb 31.4 pg (27.0-31.0); Mean Corpuscular Volume 93.2 fL (80.0-94.0); Mean Platelet Volume 10.9 fL (7.4-10.4); Platelet Count 137 10^3/uL (130-400); Red Blood Cell Count 3.98 10^6/uL (4.70-6.10); Red Cell Dist. Width 12.9 % (11.5-14.5); White Blood Cell Count 4.7 10^3/uL (4.8-10.8)
[2024-05-18 08:14] LABS: Blood Urea Nitrogen 16 mg/dl (9-20); Calcium 8.5 mg/dl (8.4-10.2); Carbon Dioxide 26 mmol/L (22-30); Chloride 105 mmol/L (98-107); Estimated Creatinine Clearance 34 ml/min; Glucose 184 mg/dl (70-99); Potassium 4.5 mmol/L (3.5-5.1); Sodium 138 mmol/L (135-145); eGFR 39.75
[2024-05-18 09:15] VITALS: BP 160/65; PULSE 82; O2SAT 93
--- NOTE | 2024-05-18 11:06 | W.PN.ID1 ---
Date of Service
Date of Service: May 18, 2024
Today's Communication
Last day of oseltamivir.
ID will sign off.
Assessment / Plan
# Influenza A infection
# Low grade fever due to flu, resolved
- CXR no pneumonia
- Last day of oseltamivir 30mg po qd (d5 of 5)
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
Alzheimer dementia
Diabetes mellitus
Dyslipidemia
CKD3
BPH
Stress incontinence
ambulatory dysfunction
knee surgery
Chief Complaint
-: Other (Influenza)
Subjective / Review of Systems
Sitting up in chair. He feels good almost back to baseline. Appetite returning.
Vital Signs / Physical Exam
Vital Signs
Vital Signs
Temp Pulse Resp BP Pulse Ox
97.9 F 63 18 113/62 94
05/18/24 07:42 05/18/24 07:28 05/18/24 07:28 05/18/24 07:28 05/18/24 07:28
Physical Exam
Constitutional: No Acute Distress and Comfortable
Cardiovascular: Regular Rate and S1/S2
Pulmonary: Clear; Negative Wheezes, Rales or Rhonchi
Extremities: Negative Edema
Neurological: Awake and Alert
Objective Data
Lab Data
Lab Results
05/18/24 07:20
05/18/24 07:20
Estimated Creat Clear 34 ml/min 05/18/24 07:20
Lactic Acid 1.2 mmol/L (0.7-2.0) 05/14/24 18:39
Total Bilirubin 0.9 mg/dl (0.2-1.3) 05/15/24 05:53
AST 102 U/L (17-59) H 05/15/24 05:53
ALT 40 U/L (0-50) 05/15/24 05:53
Alkaline Phosphatase 99 U/L (38-126) 05/15/24 05:53
Most recent labs reviewed.
Micro Results:
05/15/24 07:29 Blood Culture - Preliminary
Blood/Venous No Growth in 72 hours- Final report to follow
05/14/24 11:29 Influenza Types A & B (HANDY) - Final
Nasal Swab Influenza A Positive, NAAT
05/14/24 CXR: No acute cardiopulmonary process.
[2024-05-18 11:44] LABS: Glucose - Point of Care 325 mg/dl (70-99)
[2024-05-18] MEDS: NOVOLOG FLEXPEN-LOW RESISTANCE 4 UNITS SC ×2 (12:44→17:17)
--- NOTE | 2024-05-18 12:54 | W.PN.HOSP.TC ---
Today's Communication/Plan
-
Tamiflu
Increase p.o. intake
Adjust insulin
Await placement
Assessment / Plan
Assessment / Plan
Physical Exam
Constitutional: Comfortable
Head: no deformity
Eyes: No Conjunctival Hemorrhage and Sclera Anicteric
Cardiovascular: Regular Rate and S1/S2
Pulmonary: mild wheezes at times.
Gastrointestinal: Soft, Non Tender and Non Distended
Genito-Urinary: Negative CVA Tenderness
Extremities: Negative Edema
Neurological: Awake, disoriented , he follows commands
Psych: calm
Influenza A infection
# Fever due to flu
CXR no pneumonia
No low-grade temperature , no hypoxia, denies cough but he is poor historian.
continue renally adjusted oseltamivir 30mg po qd last day
Continue supportive care
Appreciate ID input, continue with Tamiflu
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
#Hyperkalemia
Renal function close to baseline
IV fluids were given creatinine down trended.
# Type 2 diabetes
Appetite improved. Now with hyperglycemia.
Restart basal bolus regimen with reduced dose. Restart Lantus at 10 units and NovoLog at 4 units and uptitrate as needed
A1c 9.2
Dementia without any behavioral disturbances
-Continue donepezil, Lexapro
Hyperlipidemia
-Continue statin
Urinary stress incontinence
-Continue tamsulosin
GERD
Essential hypertension
not on medications per med list or last discharge date from .
BP is uncontrolled, will start him on amlodipine ( he was discharge on amlodipine in 2022)
Skin cancer
DNR/DNI
DVT prophylaxis�heparin
PT/OT SNF. Case management aware. Medically stable for discharge.
Anticipated Discharge: Today
Subjective/Interval History
-
Date of Service: May 18, 2024
Improvement in diet
Room air
Objective Data
-
Labs:
Laboratory Results
05/18/24
07:20
WBC 4.7 L
Hgb 12.5 L
Hct 37.1 L
Plt Count 137
Sodium 138
Potassium 4.5
Chloride 105
Carbon Dioxide 26
BUN 16
Creatinine 1.7 H
Glucose 184 H
Calcium 8.5
Vital Signs:
Vital Signs
Temp Pulse Resp BP Pulse Ox
97.9 F 63 18 113/62 94
05/18/24 07:42 05/18/24 07:28 05/18/24 07:28 05/18/24 07:28 05/18/24 07:28
I&O
05/17/24 05/18/24 05/19/24
06:59 06:59 06:59
Intake Total 720 / 720 1755 / 1755
Balance 720 / 720 1755 / 1755
--- NOTE | 2024-05-18 13:00 | CM ---
Received call from patient's daughter, Kenya, who identified as the POA for patient. She expressed that she would like for patient to return home with his who provides 24 care along with [facility]. Reviewed PT with Kenya,
how patient is currently functioning and what challenges that may present upon bringing home home.
Kenya stated that she will discuss whether siblings agree on SNF or home with VN services, and will return call with determination.
Attending updated.
Plan: Case management will continue to follow and assist with discharge planning. [facility].
[2024-05-18] MEDS: TAMIFLU 30 MG PO (14:24)
[2024-05-18 15:30] VITALS: BP 116/48
[2024-05-18 17:11] LABS: Glucose - Point of Care 303 mg/dl (70-99)
[2024-05-18] MEDS: LEXAPRO 30 MG PO (17:17)
[2024-05-18] MEDS: FLOMAX 0.4 MG PO (17:17)
[2024-05-18] MEDS: NOVOLOG FLEXPEN 4 UNITS SC (17:18)
[2024-05-18] MEDS: ARICEPT 10 MG PO (21:37)
[2024-05-18] MEDS: CRESTOR 10 MG PO (21:37)
[2024-05-18] MEDS: LANTUS 0.1 UNITS SC (21:42)
[2024-05-18 21:43] LABS: Glucose - Point of Care 184 mg/dl (70-99)
[2024-05-18 23:00] VITALS: BP 143/76
[2024-05-19 06:57] VITALS: BP 133/68
[2024-05-19 07:37] LABS: Glucose - Point of Care 174 mg/dl (70-99)
[2024-05-19] MEDS: NOVOLOG FLEXPEN-LOW RESISTANCE 1 UNITS SC (08:45)
[2024-05-19] MEDS: NOVOLOG FLEXPEN 4 UNITS SC (08:45)
[2024-05-19] MEDS: NORVASC 5 MG PO (08:46)
[2024-05-19] MEDS: HEPARIN 5000 UNITS SC (08:46)
--- NOTE | 2024-05-19 10:53 | W.PN.HOSP.TC ---
Addendum entered and electronically signed by Bennett Means MD 05/20/24 12:37:
sepsis -poa
Original Note:
Today's Communication/Plan
-
await placement
adjust insulin
Cont norvasc
Assessment / Plan
Assessment / Plan
Physical Exam
Constitutional: Comfortable
Head: no deformity
Eyes: No Conjunctival Hemorrhage and Sclera Anicteric
Cardiovascular: Regular Rate and S1/S2
Pulmonary: mild wheezes at times.
Gastrointestinal: Soft, Non Tender and Non Distended
Genito-Urinary: Negative CVA Tenderness
Extremities: Negative Edema
Neurological: Awake, disoriented , he follows commands, apparent dementia
Psych: calm
#Influenza A infection
#Fever due to flu
CXR no pneumonia
No low-grade temperature , no hypoxia, denies cough but he is poor historian.
continue renally adjusted oseltamivir 30mg po qd completed course
Continue supportive care
ID was consulted and signed off
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
#Hyperkalemia
Renal function close to baseline
IV fluids were given creatinine down trended.
# Type 2 diabetes
Appetite improved. Now with hyperglycemia.
Restart basal bolus regimen with reduced dose. Restart insulin at reduce dose Lantus at 10 units and NovoLog at 5 units and uptitrate as needed
A1c 9.2
Dementia without any behavioral disturbances
-Continue donepezil, Lexapro
Hyperlipidemia
-Continue statin
Urinary stress incontinence
-Continue tamsulosin
GERD
Essential hypertension
not on medications per med list or last discharge date from .
BP is uncontrolled, will start him on amlodipine ( he was discharge on amlodipine in 2022)
BP 133/68
Skin cancer
DNR/DNI
DVT prophylaxis�heparin
PT/OT SNF. Case management aware. Medically stable for discharge.
Anticipated Discharge: Today
Subjective/Interval History
-
Date of Service: May 19, 2024
appetite improved
poc elevated now
afebrile
Objective Data
-
Vital Signs:
Vital Signs
Temp Pulse Resp BP Pulse Ox
98.2 F 61 17 133/68 95
05/19/24 06:57 05/19/24 08:46 05/19/24 06:57 05/19/24 08:46 05/19/24 06:57
I&O
05/18/24 05/19/24 05/20/24
06:59 06:59 06:59
Intake Total 1755 / 1755 360 / 360
Balance 1755 / 1755 360 / 360
--- NOTE | 2024-05-19 11:01 | W.DCSUMMARY ---
Discharge Summary
Discharge Data
Date of Admission: 05/15/24
Date of Discharge: 05/19/24
-
Pending Results: No
Hospital Course
83 yo male past medical history of diabetes mellitus, dementia, hyperlipidemia, urinary incontinence, GERD, hypertension, skin cancer, CKD who is presenting from home with weakness and change in mental status. Patient was found to be positive for
influenza A. Patient has soft blood pressure on admission received aggressive IV fluid resuscitation. Patient was started on Tamiflu which was renally dosed. Patient had elevated creatinine on admission which down trended. Infectious disease was
consulted. Patient completed course of Tamiflu in the hospital. Patient mentation returned to baseline. Patient without any agitation. Patient blood pressure stabilized and was found to be on the elevated side. Patient was started on blood
pressure medication. Patient with intermittent episode of hypoglycemia and insulin dose of basal bolus was decreased. Patient was evaluated by therapy recommended SNF however patient daughter wants to take patient home with visiting nurses.
Recommended outpatient follow-up with primary doctor.
Discharge Plan
-
Patient Disposition: Home with Home Care
Discharge Diagnosis/Procedures: Influenza A infection
Acute kidney injury on chronic kidney [id number]
Hyperkalemia
Condition: Fair
Diet: Diabetic, Carb Controlled
Activity: With assistance and As tolerated
Driving Restrictions: Not until seen by your Dr
Other Services: VN
Referrals:
UNKNOWN - PT NOT,INTERVIEWE [Family Provider] - in less than 1 week (Follow-up with primary doctor for further insulin adjustment and blood pressure management.)
Prescriptions:
New
amlodipine 5 mg Tablet
5 mg PO BID 30 Days Qty: 60 0RF
Continued
tamsulosin 0.4 MG capsule
0.4 mg PO QPM
donepezil 10 MG tablet
10 mg PO HS
rosuvastatin 40 mg Tablet
40 mg PO HS
escitalopram oxalate [Lexapro] 10 mg Tablet
30 mg PO QPM
Changed
insulin aspart U-100 [Novolog U-100 Insulin aspart] 100 unit/mL Solution
5 unit SC AC Qty: 0 0RF
insulin glargine [Lantus Solostar U-100 Insulin] 100 unit/mL (3 mL) Insulin Pen
10 unit SC HS Qty: 0 0RF
Discontinued
insulin aspart U-100 [Novolog FlexPen U-100 Insulin] 100 unit/mL (3 mL) Insulin Pen
10 unit SC NOON
insulin aspart U-100 [Novolog FlexPen U-100 Insulin] 100 unit/mL (3 mL) Insulin Pen
8 unit SC QPM
Discharge Orders:
Discharge Patient (As Directed); Ordered 05/19/24
Ordered By: Bennett Means
Discharge Date and Time
Print Language: SRI LANKAN
[2024-05-19 11:32] LABS: Glucose - Point of Care 249 mg/dl (70-99)
[2024-05-19] MEDS: NOVOLOG FLEXPEN-LOW RESISTANCE 2 UNITS SC (13:36)
[2024-05-19] MEDS: NOVOLOG FLEXPEN 5 UNITS SC (13:37)
[2024-05-19] MEDS: TAMIFLU 30 MG PO (13:39)
--- NOTE | 2024-05-19 13:41 | CM ---
Addendum entered by ROMÁN Cordova 05/19/24 15:24:
Correction-spoke with patient's daughter Kenya on phone. Spoke with Tasha at bedside. Conveyed concerns on behalf of all medical staff about plan to take patient home, she as well as her sister Kenya stated that they will have additional family
at home to assist with his care when aides are not there.
Original Note:
Placed a call to patient's daughter, Tasha, who has poa and she stated that she and family would like to bring patient home as [facility]. Attending updated. Ordering VN.
Reviewed IMM. She is agreeable.
Plan: Case management will continue to follow and assist with discharge planning. Patient's daughter will pick patient up.
--- NOTE | 2024-05-19 15:04 | VNURNOTE ---
Home Health Liaison spoke briefly with patient's daughter ALETHEA Zambrano to discuss [facility] nurse/therapy, visits, schedule and homebound status. She is agreeable and understands that visits at home will be 2-3 x per week to assess and teach medical
management.
[facility] liaison provided daughter with contact information. She is aware that [facility] will contact them for start of care in 1-2 days after discharge from . [facility] referral completed in [facility]. PCP is Dr Todd Hathaway/ [facility]
[2024-05-19 15:14] VITALS: BP 130/62
--- NOTE | 2024-05-19 15:37 | PN.CDI ---
CDI
- -
CDI:
Physician Documentation Request
Admit Date: 05/15/24 07:21
Dear Doctor Miguelangel,
Please review the following and provide your response in the progress notes.
Clinical Indicators:
H+P, 05/14
# Influenza A infection
#-Initially hypotensive with systolic of 90 but has improved with IV fluids
PN, 05/19
#Influenza A infection
#Fever due to flu
Selected Entries
05/15/24
05:40 05/15/24
07:37 05/16/24
07:57
Temp 100.6 F H 100.4 F H
Pulse 92
Laboratory Tests
05/14/24 05/15/24 05/18/24
11:29 05:53 07:20
WBC 7.6 7.3 4.7 L
Based on the above and your clinical assessment, please clarify which of the following most accurately describes the status of the patient's infection:
Sepsis evolved during hospitalization
Viral sepsis
Localized Infection Only, Without Systemic Illness
- indicate the site/source, such as UTI, pneumonia etc.
Other (please specify)
Sepsis
- Systemic manifestations of infection, with 2 or more SIRS criteria which include:
- Fever >100.4 degrees F or hypothermia < 96.8 degrees F
- Leukocytosis - WBC > 12,000 or leukopenia - WBC < 4,000 or > 10% bands
- Tachycardia > 90 beats per minute
- Tachypnea - RR > 20 breaths per minute or PaCO2 , 32mmHg
Source: Merck Manual 2013
- Indicate the known or suspected underlying infection, such as UTI, pneumonia or cellulitis
Use of terms such as suspected, likely, concern for, or probable (associated with a specific diagnosis that is being evaluated, monitored, or treated as if it exists) are acceptable and can be coded in the inpatient setting, when documented at the
time of discharge.
Thank you,
Vanessa Garcia RN BSN CCDS
CDI Specialist
please contact via tiger text
Please use your independent medical judgment in providing your response.
== END 2024-05-19 16:10 | disposition home health service (06) | DRG 872 ==
LOC: 3 WEST ACU 07:21
PROVIDERS: Internal Medicine; Physician Assistant; ADMITTING PHYSICIAN Hospitalist; ATTENDING PHYSICIAN Hospitalist; EMERGENCY PHYSICIAN Emergency Medicine; OTHER PHYSICIAN Internal Medicine Infectious Disease
DX: A41.9 Sepsis, unspecified organism (principal); N17.9 Acute kidney failure, unspecified; J10.1 Influenza due to other identified influenza virus with other respiratory manifestations; Z66 Do not resuscitate; I12.9 Hypertensive chronic kidney disease with stage 1 through stage 4 chronic kidney disease, or unspecified chronic kidney disease; E11.22 Type 2 diabetes mellitus with diabetic chronic kidney disease; E11.649 Type 2 diabetes mellitus with hypoglycemia without coma; N18.32 Chronic kidney disease, stage 3b; G30.9 Alzheimer's disease, unspecified; F02.80 Dementia in other diseases classified elsewhere, unspecified severity, without behavioral disturbance, psychotic disturbance, mood disturbance, and anxiety; K21.9 Gastro-esophageal reflux disease without esophagitis; N39.3 Stress incontinence (female) (male); E78.00 Pure hypercholesterolemia, unspecified; E87.5 Hyperkalemia; N40.0 Benign prostatic hyperplasia without lower urinary tract symptoms; Z20.822 Contact with and (suspected) exposure to COVID-19; Z79.4 Long term (current) use of insulin; Z79.899 Other long term (current) drug therapy; Z85.828 Personal history of other malignant neoplasm of skin
CPT/HCPCS: 71046; 80048; 80053; 81003; 81015; 82962; 83036; 83605; 83690; 85025; 85027; 87040; 87502; 87811; 93005; 96360; 97116; 97163; 97167; 97530; 99285

== ENCOUNTER 2024-05-21 18:34 | Observation (INO) | payer OTHER, SELFPAY ==
[2024-05-21] VITALS (11 sets, daily range): BP systolic 93–152; BP diastolic 43–104; PULSE 58–83; BMI 25.3
[2024-05-21 12:57] LABS: Glucose - Point of Care 250 mg/dl (70-99)
--- NOTE | 2024-05-21 13:20 | ED.GENMED ---
Addendum entered and electronically signed by Amish Reilly DO 05/21/24 16:49:
Update RN called family they have concerns about the patient going home states he may need placement etc.'s been stable here, see no indication for admission not requiring oxygen will consult case management physical therapy
Original Note:
History of Present Illness
General
Chief Complaint: Blood Pressure Problem
Source: patient
Exam Limitations: dementia
Time Seen by Provider: 05/21/24 12:58
Nursing documentation reviewed up to this point in time: agreed with
History of Present Illness
History of Present Illness:
83-year-old male dementia diabetes presents with low blood pressure via EMS, apparently his blood pressure was low family called PCP referred to the ER, here patient is demented knows his name does not know much else, states he has had a cough,
denies chest pain denies shortness of breath denies abdominal pain blood pressure is normalized here, low blood pressure from EMS strip she is low
If applicable-neuro sx onset
Onset of symptoms known: No
Time pt last seen normal is known: No
Past History
Past History
ED Past Medical History: Cancer (Skin CA), GERD, HTN, Hypercholesterolemia, NIDDM and Other (Alzheimer's, balance problems, GERD, stress incontinence, ambulatory dysfunction, PNA, )
ED Past Surgical History: Orthopedic (Neck surgery, Knee surgery) and Other (Hernia surgery, sinus surgery, Eye lid surgery)
Social History
Tobacco: Non-smoker
Alcohol: Occasional
Drug: None
Personal:
Living: with family
Employment: Retired
Phy Exam
Physical Exam
Physical Exam:
Physical Exam
General: no apparent distress, not acutely ill
Neck: no jaundice
Heart: s1/s2 regular rate and rhythm, no murmur. equal radial pulses.
Lungs: faint exp wheeze
Abdomen: non tender
Neuro: demented non toxic
Skin: no rash
Psychiatric: cooperative
Extremities: no edema. no calf tenderness.
Course
Orders/Labs/Results
Orders:
Orders
05/21/24 13:07
Electrocardiogram (*1) Urgent
Reason for Study: Shortness of Breath
EKG- Treatment ONCE
05/21/24 13:25
Complete Blood Count/With Diff Urgent
Comprehensive Metabolic Panel Urgent
Troponin I Urgent
Influenza A+B Rapid Molecular Urgent
SAADIA Source: Nasal Swab
Specimen Description:
05/21/24 14:34
CR Chest - 2 Views Urgent
Comment:
Reason For Exam: cough flu
Abnormal Lab Results
05/21/24 05/21/24
12:55 13:25
RBC 4.08 L 10^6/uL
(4.70-6.10)
Hgb 12.7 L g/dL
(13.0-18.0)
Hct 38.5 L %
(39.0-52.0)
MCV 94.4 H fL
(80.0-94.0)
MCH 31.1 H pg
(27.0-31.0)
MPV 10.7 H fL
(7.4-10.4)
Potassium 5.4 H mmol/L
(3.5-5.1)
Creatinine 2.0 H mg/dL
(0.7-1.3)
Glucose 280 H mg/dl
(70-99)
POC Glucose 250 H mg/dl
(70-99)
05/21/24 13:25
05/21/24 13:25
Vital Signs
Initial and Last Documented VS:
Initial Vital Signs
Temp Pulse Resp BP Pulse Ox
98.3 F 65 14 151/71 97
05/21/24 12:52 05/21/24 12:52 05/21/24 12:52 05/21/24 12:52 05/21/24 12:52
Last Documented Vital Signs
Temp Pulse Resp BP Pulse Ox
98.3 F 60 14 142/59 97
05/21/24 12:52 05/21/24 13:30 05/21/24 13:00 05/21/24 13:00 05/21/24 13:30
MDM/Problems Addressed
Differential Diagnosis Includes:
Dehydration cardiac event infectious less likely pulmonary embolism, less likely perforated viscus, ruptured abdominal aneurysm
MDM/Problems Addressed:
Low blood pressure
Chronic conditions affecting care: DM
Acute Exacerbation and/or Progression of Chronic Illness: DM
*Radiology
Radiology exam reviewed: preliminary read by ED provider
*EKG
Interpreted by ED Provider?: Yes
Heart Rate: 64
Rate: normal
Rhythm: sinus
Ischemia: no ischemia
*Senior Attorney Interpretation
Rate: normal
Interpretation: normal
Heart Rate: 64
Rhythm: sinus
*Critical Care Note
Total Time (30-74mins, 75-104mins- exclusive of procedures): Not Applicable
Update Note
Update Note:
Update blood pressures normalized here, blood sugars elevated, patient has dementia, will check flu test labs chest x-ray continue some hydration
Update labs are noted EKG noted, creatinine not too far from his baseline, flu test positive
4 PM update patient resting comfortably blood pressures have remained stable here chest x-ray noted
ED Attending Note
-
Portions of this chart may have been created with voice recognition software.� Occasional wrong word or��sound alike� substitutions may have occurred due to the inherent limitations of voice recognition software.
Discharge Plan
Departure
Patient Disposition: Home (Routine Discharge)
Date of Disposition: 05/21/24
Time of Disposition: 16:02
Patient with high blood pressure during this ER visit?: No
Condition: Good
Discharge Problem:
Influenza
Instructions: Flu in adults - ED discharge instructions, Flu
Prescriptions:
No Action
tamsulosin 0.4 MG capsule
0.4 mg PO QPM
donepezil 10 MG tablet
10 mg PO HS
rosuvastatin 40 mg Tablet
40 mg PO HS
escitalopram oxalate [Lexapro] 10 mg Tablet
30 mg PO QPM
amlodipine 5 mg Tablet
5 mg PO BID 30 Days Qty: 60 0RF
insulin aspart U-100 [Novolog U-100 Insulin aspart] 100 unit/mL Solution
5 unit SC AC Qty: 0 0RF
insulin glargine [Lantus Solostar U-100 Insulin] 100 unit/mL (3 mL) Insulin Pen
10 unit SC HS Qty: 0 0RF
Referrals:
Julio Ramachandran MD [Family Provider] - Next open appointment
Activity Restrictions/Additional Instructions:
Drink plenty of fluids, Tylenol as needed for fever
Interventions
Interventions:
*Risk Screen - Suicide Last Done: 05/21/24 12:53
*General Assessment Last Done: 05/21/24 12:55
*Neglect/Abuse Screening Last Done: 05/21/24 12:53
*ED COVID-19 Vaccine History Last Done: 05/21/24 12:52
ED- Cardiac Assessment Last Done: 05/21/24 12:54
ED- Neurological Assessment Last Done: 05/21/24 12:54
ED- Pulmonary Assessment Last Done: 05/21/24 12:54
Discharge Date and Time
Print Language: ZAMBIAN
[2024-05-21 13:35] LABS: % Basophils 0.8 % (0-2); % Eosinophils 4.1 % (0-6); % Immature Granulocytes 0.2 % (0-0.5); % Lymphocytes 31.8 % (20.5-51.1); % Monocytes 5.6 % (1.7-9.3); % Neutrophils 57.5 % (42.2-75.2); Absolute Basophils 0.1 10^3/uL (0-0.2); Absolute Eosinophils 0.3 10^3/uL (0-0.7); Absolute Monocytes 0.4 10^3/uL (0.1-0.6); Absolute Neutrophils 3.6 10^3/uL (1.4-6.5); Hematocrit 38.5 % (39.0-52.0); Hemoglobin 12.7 g/dL (13.0-18.0); Mean Corpuscular Hgb 31.1 pg (27.0-31.0); Mean Corpuscular Volume 94.4 fL (80.0-94.0); Mean Platelet Volume 10.7 fL (7.4-10.4); Nucleated Red Blood Cells % 0 % (-); Platelet Count 162 10^3/uL (130-400); Red Blood Cell Count 4.08 10^6/uL (4.70-6.10); White Blood Cell Count 6.3 10^3/uL (4.8-10.8)
[2024-05-21 13:46] LABS: ALT (SGPT) 44 U/L (0-50); AST (SGOT) 50 U/L (17-59); Albumin 3.9 g/dl (3.5-5.0); Alkaline Phosphatase 102 U/L (38-126); Blood Urea Nitrogen 18 mg/dl (9-20); Carbon Dioxide 27 mmol/L (22-30); Chloride 104 mmol/L (98-107); Glucose 280 mg/dl (70-99); Potassium 5.4 mmol/L (3.5-5.1); Sodium 139 mmol/L (135-145); Total Bilirubin 0.6 mg/dl (0.2-1.3); Total Protein 7.3 g/dl (6.3-8.2); eGFR 32.71
[2024-05-21 13:59] LABS: Troponin I < 0.012 ng/ml
--- NOTE | 2024-05-21 16:56 | CM ---
Addendum entered by Sun Madrid RN 05/21/24 17:34:
[facility] unable to accept as they do not have a flu or male bed.
Original Note:
CM reviewed medical records. CM spoke with patient's daughter who stated that patient is not safe at home and family has no opted for placement. Family expressed preference or [facility]. CM will send referrals via [facility].
PT is not available at this time to assist with insurance authorization.
PLAN: SNF when bed is found and auth is obtained.
--- NOTE | 2024-05-21 17:07 | HPS.HSE ---
Addendum entered and electronically signed by Bennett Means MD 05/21/24 17:59:
I saw and examined the patient.
The READING RECOVERY TEACHER's note was reviewed and I agree with the note.
Comment:
83-year-old male past medical history of dementia was recently admitted for influenza was returning from home with episode of hypotension. In the EMS patient was found to have systolic blood pressure of 90s. Patient received IV fluids and blood
pressure responded appropriately. Family having difficulty taking care of patient at home and now requesting assistance in placement. Patient is currently resting in bed denies any complaints. Denies lightheadedness or dizziness. Patient is a he
is hungry and wants to eat.
General: Conversant; No Chills
HEENT: NormoCephalic, Anicteric, PERRLA, [place] Conjunctivae and No Ptosis
Respiratory: Clear; No Wheezes, Rales or Rhonchi
Cardiac: S1/S2 and Regular Rhythm; No Murmur, Rub, Gallop or Peripheral Edema
GI: Soft, Non Tender, Non Distended, Normal Bowel Sounds and No Hepatosplenomegaly
Musculoskeletal: No Clubbing, No Cyanosis and No Edema
Skin: Warm and Dry; No Rash or Jaundice
Neuro: Awake, Alert, Oriented, Cranial Nerves Intact and No Sensory Deficits; No Slurred Speech, Facial Droop or Tremors
Psych: Calm
Impression
Hypotension likely secondary dehydration in the setting of recent influenza
Dementia
Diabetes mellitus
BPH
Hyperlipidemia
Mood disorder
Plan
Start patient IV fluids
Chest x-ray pending
Persistently influenza positive
Monitor POC
Continue with current insulin regimen and can further be adjusted
Continue with statin
DVT prophylaxis
DNR
Case management for placement
I spent a total of 80 minutes with the patient or on the floor. More than 50% of this time involved counseling and coordination of care.
Original Note:
Family Physician
-
Family Physician: Julio Ramachandran
Chief Complaint
-
Cough, reported low blood pressure
History of Present Illness
83-year-old male with Dementia sent by his family to the ER for reported cough, low blood pressure. The pt was admitted from 05/14 to 05/19 for Flu A+ his was also sick with the Flu and Pneumonia. He was given Norvasc on D/c due to reported
elevated Bp's 140-160 systolic. his Daughter did not start that. He tends to have Labile HTN. When he came home he was fine that day but the next day he wasn't getting up to eat per but then got up wed with the home Nurse. He has been in his
room not coming out most of the time but did get up yesterday again to eat. Today the Home care Nurse noted Hypotension and sent him to the Er for eval for infection. EMs reports noted Bp 90/50's and they gave 1 liter of NSS and now Bp > 135/77.
Per is daughter he is unable to eat by himself he will stare at a sandwich if wrapped , he cant use a knife,. he needs things removed like lids, plastic wrap. He wont be able to order food for himself if admitted. They have aids daily for 2 hours
only , but his is now feeling better to take care of him. Daughter Jose Luis states they think He needs Rehab. They tried him going home but he still isn't back to himself . He is still testing Positive for FLu A.
The Patient has past medical history of Dementia with balance disorder, stress urinary incontinence, Paralized Right lung unsure reason labile HTN, DM 2, HLD, CKD 3B�4A GERD, anxiety, skin CA.
Medical History
Past Medical History
Past Medical History: Reports Other (CKD 3B, diabetes, dementia, hyperlipidemia, urine stress incontinence,CKD 3B-4A GERD, hypertension, skin cancer)
Additional Past Medical History:
Flu A on 05/14/23
Past Surgical History: Reports Other (Orthopedic (Neck surgery, Knee surgery) and Other (Hernia surgery, sinus surgery, Eye lid surgery))
Social History
Tobacco: Non-smoker
Alcohol: Occasional
Drug: None
Personal:
Living: With Family
Family History
Family History: Not pertinent
Allergies / Home Medications
Allergies reflects when Allergies were last updated in [facility].
Home Medications with original date entered in [facility]
Allergy/Medication List:
Allergies
Allergy/AdvReac Type Severity Reaction Status Date / Time
No Known Allergies Allergy Verified 05/14/24 11:12
Home Medications
donepezil 10 mg tablet 10 mg PO HS Memory issues 09/15/19
tamsulosin 0.4 mg capsule 0.4 mg PO QPM Urinary issue 09/15/19
escitalopram oxalate 10 mg tablet (Lexapro) 30 mg PO QPM Mental Health/Anxiety 10/20/23
rosuvastatin 40 mg tablet 40 mg PO HS High Cholesterol 10/20/23
insulin aspart U-100 100 unit/mL subcutaneous solution (Novolog U-100 Insulin aspart) 5 unit SC BID Diabetes 05/21/24
insulin aspart U-100 100 unit/mL subcutaneous solution (Novolog U-100 Insulin aspart) 10 unit SC NOON 05/21/24
insulin glargine 100 unit/mL (3 mL) subcutaneous pen (Lantus Solostar U-100 Insulin) 18 unit SC HS Diabetes 05/21/24
Review of Systems
-
History Source: Patient and Family (daughter Jose Luis Gilliland)
A 12 point ROS was completed and negative except as noted: Yes
Constitutional: Reports Fatigue; Denies Fever or Chills
EENT: Denies Sore Throat or Runny Nose
Respiratory: Reports Cough; Denies Trouble Breathing
Cardiac: Denies Chest Pain, Diaphoresis, Palpitations or Syncope
Abdomen/GI: Denies Abdominal Pain, Nausea, Vomiting or Diarrhea
: Denies Dysuria, Frequency, Flank Pain, Incontinence or Difficulty Voiding
Musculoskeletal: Denies Joint Pain or Edema
Skin: Denies Itching or Rash
Neurological: Denies Dizzy, Headache or Weakness
Endocrine: Reports No Symptoms
Hematologic/Lymphatic: Reports No Symptoms
Psych: Reports Calm
Physical Exam
Vital Signs
Vital Signs
Temp Pulse Resp BP Pulse Ox
98.3 F 54 12 135/77 97
05/21/24 12:52 05/21/24 16:45 05/21/24 16:45 05/21/24 16:00 05/21/24 16:45
Physical Exam
General: Conversant; No Chills
HEENT: NormoCephalic, Anicteric, PERRLA, [place] Conjunctivae and No Ptosis
Respiratory: Clear; No Wheezes, Rales or Rhonchi
Cardiac: S1/S2 and Regular Rhythm; No Murmur, Rub, Gallop or Peripheral Edema
Breast: Deferred by me
GI: Soft, Non Tender, Non Distended, Normal Bowel Sounds and No Hepatosplenomegaly
Rectal: Deferred by Provider
Genito-urinary: Deferred by me
Musculoskeletal: No Clubbing, No Cyanosis and No Edema
Skin: Warm and Dry; No Rash or Jaundice
Neuro: Awake, Alert, Oriented, Cranial Nerves Intact and No Sensory Deficits; No Slurred Speech, Facial Droop or Tremors
Psych: Calm
Laboratory Results
-
05/21/24 13:25
05/21/24 13:25
Laboratory Results
Total Bilirubin 0.6 mg/dl (0.2-1.3) 05/21/24 13:25
AST 50 U/L (17-59) 05/21/24 13:25
ALT 44 U/L (0-50) 05/21/24 13:25
Alkaline Phosphatase 102 U/L (38-126) 05/21/24 13:25
Troponin I < 0.012 ng/ml 05/21/24 13:25
Data Reviewed
-
Diagnostic Radiology: Report Reviewed by me
Lab Data: Labs Reviewed by me
Impression/Plan
-
Impression/plan:
OBS MedSurg
#Cough/weakness secondary to influenza A
Tested + on 05/14 and again today 05/21
-IV NSS 1 liter given by EMS, will give Iv Nss 60 cc/hr x 1 liters
-completed
-Mucinex
-Follow CBC, BMP
- consult case mgmt for rehab
EKG: Sinus bradycardia 55 bpm, QTc 443 MS
#Dementia
-Continue donepezil 10 mg at bedtime
needs help with food , ordering , opening , cut items
Doesn't Like Chicken
# Hypotension Labile/ HTN
BP 135/77
-Continue
#CKD 3B-4A
Creat 2 was 1.7 on 05/18/2024
#Hyperkalemia�hypovolemic
K5.4
IV NSS
-Follow BMP
#DM 2 with mild hyperglycemia
BS 280
Accu-Cheks with SSI low, check HgbA1c
-Continue NovoLog 5 units twice daily, NovoLog 10 units at noon,
Lantus 18 units SQ at bedtime
#HLD
-Continue Crestor 40 mg at bedtime
#GERD
-No reported meds
#Anxiety
-Continue Lexapro 30 mg every afternoon
#BPH
#Stress urinary incontinence-Chronic
Continue Flomax 0.4 mg every afternoon with hold parameters
#Chronic ambulatory dysfunction
-PT/OT consult
DVT prophylaxis
Subcu Lovenox
Dnr per daughter Jose Luis gilliland PLEASE CALL [facility] [phone] as daughter requested
[2024-05-21] MEDS: NSS 1000 IV (17:54)
[2024-05-21] MEDS: LOVENOX 40 MG SC (20:55)
[2024-05-21 21:50] LABS: Glucose - Point of Care 108 mg/dl (70-99)
[2024-05-21] MEDS: CRESTOR 40 MG PO (21:50)
[2024-05-21] MEDS: ARICEPT 10 MG PO (21:50)
[2024-05-21] MEDS: LANTUS 0.18 UNITS SC (21:50)
[2024-05-22] MEDS: NSS 1000 IV (05:19)
[2024-05-22 07:35] VITALS: BP 152/66
[2024-05-22 07:46] LABS: Glucose - Point of Care 64 mg/dl (70-99)
[2024-05-22] MEDS: NOVOLOG FLEXPEN SC (07:51)
--- NOTE | 2024-05-22 08:46 | VNURNOTE ---
Chart reviewed. Patient is current with [facility] nursing. Will continue to follow hospital course and DC plans- chart review shows plan for SNF. [facility] remains available.
[2024-05-22 08:50] LABS: % Eosinophils 4.6 % (0-6); % Immature Granulocytes 0.2 % (0-0.5); % Lymphocytes 43.5 % (20.5-51.1); % Neutrophils 43.7 % (42.2-75.2); Absolute Basophils 0.1 10^3/uL (0-0.2); Absolute Eosinophils 0.3 10^3/uL (0-0.7); Absolute Lymphocytes 2.6 10^3/uL (1.2-3.4); Absolute Monocytes 0.4 10^3/uL (0.1-0.6); Absolute Neutrophils 2.6 10^3/uL (1.4-6.5); Hematocrit 36.1 % (39.0-52.0); Mean Corp Hgb Conc. 33.2 g/dL (33.0-37.0); Mean Corpuscular Hgb 31.4 pg (27.0-31.0); Mean Corpuscular Volume 94.5 fL (80.0-94.0); Nucleated Red Blood Cells % 0 % (-); Platelet Count 159 10^3/uL (130-400); Red Blood Cell Count 3.82 10^6/uL (4.70-6.10); Red Cell Dist. Width 12.8 % (11.5-14.5)
--- NOTE | 2024-05-22 09:19 | CM ---
Addendum entered by Trinity Shah RN 05/22/24 16:25:
Patient's daughter Kenya updated on transport time of 1999.
Addendum entered by Trinity Shah RN 05/22/24 14:05:
Auth approved; NRD 05/26; #[id number]; Call: [phone]
Plan: Discharge to [facility]
Call report to: [phone]
Fax report to: [phone]
Medical necessity and transport forms on chart.
Addendum entered by Trinity Shah RN 05/22/24 12:21:
[facility] able [facility] accept the [facility].
[facility] NPI# [id number]
Dr. Segundo NPI# [id number]
Addendum entered by Trinity Shah RN 05/22/24 11:54:
CM spoke with the patient's daughter Kenya via telephone. COREA reviewed. No questions with regards to the COREA. Copy left at bedside.
Original Note:
Reviewed the chart notes. Patient recently discharged (05/19/2024) to home with res[facility] of caregivers and [facility]. Patient now needing placement for short term. [facility] unable to offer bed due to
Flu+ status. [facility] answered yes in [facility]. CM left voice message with liajoão Peter to confirm bed availability. Precert will be required. CM continues to be available to patient/family and is monitoring medical plan for needs at discharge.
Plan: Discharge to SNF/rehab once bed found and precert obtained.
[2024-05-22 09:35] VITALS: BP 144/61; O2SAT 96
[2024-05-22 09:35] LABS: ALT (SGPT) 37 U/L (0-50); AST (SGOT) 42 U/L (17-59); Albumin 3.3 g/dl (3.5-5.0); Alkaline Phosphatase 94 U/L (38-126); Blood Urea Nitrogen 14 mg/dl (9-20); Carbon Dioxide 27 mmol/L (22-30); Estimated Creatinine Clearance 31 ml/min; Glucose 65 mg/dl (70-99); Potassium 4.3 mmol/L (3.5-5.1); Total Bilirubin 0.4 mg/dl (0.2-1.3); Total Protein 6.5 g/dl (6.3-8.2); eGFR 37.12
[2024-05-22 09:45] LABS: Calcium 8.4 mg/dl (8.4-10.2); Chloride 105 mmol/L (98-107); Sodium 140 mmol/L (135-145)
[2024-05-22 09:45] LABS: Glucose - Point of Care 166 mg/dl (70-99)
--- NOTE | 2024-05-22 10:25 | W.PN.HOSP.TC ---
Addendum entered and electronically signed by Bennett Means MD 05/22/24 14:40:
More than 30 minutes spent in discharge including
Final examination of the patient
Summarizing hospital stay
Instructions for continuing care to all relevant caregivers
Preparation of discharge records, prescriptions, and referral forms
Total time spent (in minutes): 52
Original Note:
Today's Communication/Plan
-
Can stop IVF
Monitor POC
Monitor BP
Cm aware for placement
Assessment / Plan
Assessment / Plan
General: Conversant; No Chills
HEENT: NormoCephalic, Anicteric, [place] Conjunctivae and No Ptosis
Respiratory: Clear; No Wheezes, Rales or Rhonchi
Cardiac: S1/S2 and Regular Rhythm; No Murmur, Rub, Gallop or Peripheral Edema
GI: Soft, Non Tender, Non Distended, Normal Bowel Sounds and No Hepatosplenomegaly
Musculoskeletal: No Clubbing, No Cyanosis and No Edema
Skin: Warm and Dry; No Rash or Jaundice
Neuro: Awake, Alert, Oriented, Cranial Nerves Intact and No Sensory Deficits; No Slurred Speech, Facial Droop or Tremors
Psych: Calm, Apparent dementia
#Cough/weakness secondary to recent influenza A
Tested + on 05/14 and again today 05/21
-IV NSS 1 liter given by EMS, will give Iv Nss can be stopped later on after 2L.
-Mucinex
-Completed course of tamiflu last admit
-consult case mgmt for rehab
#Dementia
-Continue donepezil 10 mg at bedtime
-needs assistance with food/feeding
#Hypotension Labile/ HTN
-IVF. Monitor BP. 152/66
-Fall precautions
#CKD 3B-4A
-Cr 1.8.
-seems at baseline
#Hyperkalemia�hypovolemic
resolved.
#DM 2 with mild hyperglycemia
BS 280
Accu-Cheks with SSI low,
-Continue NovoLog 5 units twice daily, NovoLog 10 units at noon,
Lantus 18 units SQ at bedtime
-Monitor POC and adjusted as needed.
#HLD
-Continue Crestor 40 mg at bedtime
#GERD
-No reported meds
#Anxiety
-Continue Lexapro 30 mg every afternoon
#BPH
#Stress urinary incontinence-Chronic
Continue Flomax 0.4 mg every afternoon with hold parameters
#Chronic ambulatory dysfunction
-PT/OT consult
DVT prophylaxis
Subcu Lovenox
Dnr
PT/OT-SNF. CM aware. Medically stable.
Anticipated Discharge: Today
Subjective/Interval History
-
Date of Service: May 22, 2024
Resting in bed comfortably
denies lightheadedness or dizziness
Objective Data
-
Labs:
Laboratory Results
05/22/24
06:44
WBC 6.0
Hgb 12.0 L
Hct 36.1 L
Plt Count 159
Sodium 140
Potassium 4.3
Chloride 105
Carbon Dioxide 27
BUN 14
Creatinine 1.8 H
Glucose 65 L
Calcium 8.4
Total Bilirubin 0.4
AST 42
ALT 37
Alkaline Phosphatase 94
Vital Signs:
Vital Signs
Temp Pulse Resp BP Pulse Ox
98.3 F 55 16 152/66 96
05/22/24 07:35 05/22/24 07:35 05/22/24 07:35 05/22/24 07:35 05/22/24 07:35
I&O
05/21/24 05/22/24 05/23/24
06:59 06:59 06:59
Intake Total 1380 / 1380
Balance 1380 / 1380
[2024-05-22 12:07] LABS: Glucose - Point of Care 176 mg/dl (70-99)
[2024-05-22] MEDS: NOVOLOG FLEXPEN 10 UNITS SC (13:18)
--- NOTE | 2024-05-22 14:38 | W.DCSUMMARY ---
Discharge Summary
Discharge Data
Date of Admission: 05/21/24
Date of Discharge: 05/22/24
-
Pending Results: No
Hospital Course
83 yo male past medical history of diabetes mellitus, dementia, hyperlipidemia, urinary incontinence, GERD, hypertension, skin cancer, CKD who is presenting from home with weakness and hypotension. EMS was called and patient was found to have
hypotension received IV fluids. Patient was seen in ER blood pressure was stable. Patient was found to be influenza positive which was consistent as he had recently been diagnosed with influenza and completed course of Tamiflu. Patient blood
pressure stabilized. Patient was not lightheaded dizzy. Patient was tolerating diet without any difficulty. Patient was eval by physical therapy. Patient was eval by case management. Patient was tolerating diet. Patient was afebrile. No
leukocytosis. Patient had mild hyperkalemia which resolved. Patient had mild elevated creatinine which was down trended to his baseline. Patient will be discharged to alf facility.
Discharge Plan
-
Patient Disposition: Long Term/SNF
Discharge Diagnosis/Procedures: Weakness secondary to recent influenza
Hypotension secondary to dehydration
Hyperkalemia
Condition: Fair
Diet: Diabetic, Carb Controlled
Activity: With assistance and As tolerated
Driving Restrictions: No driving
Referrals:
Julio Ramachandran MD [Family Provider] - in less than 1 week
Prescriptions:
Continued
tamsulosin 0.4 MG capsule
0.4 mg PO QPM
donepezil 10 MG tablet
10 mg PO HS
rosuvastatin 40 mg Tablet
40 mg PO HS
escitalopram oxalate [Lexapro] 10 mg Tablet
30 mg PO QPM
insulin aspart U-100 [Novolog U-100 Insulin aspart] 100 unit/mL Solution
10 unit SC NOON
insulin aspart U-100 [Novolog U-100 Insulin aspart] 100 unit/mL solution
5 unit SC BID
insulin glargine [Lantus Solostar U-100 Insulin] 100 unit/mL (3 mL) insulin pen
18 unit SC HS
Discharge Orders:
Discharge Patient (As Directed); Ordered 05/22/24
Ordered By: Bennett Means
Discharge Date and Time
Print Language: LATVIAN
[2024-05-22 15:25] VITALS: BP 146/76
[2024-05-22 17:32] LABS: Glucose - Point of Care 83 mg/dl (70-99)
[2024-05-22] MEDS: LEXAPRO 30 MG PO (18:38)
[2024-05-22] MEDS: FLOMAX 0.4 MG PO (18:38)
[2024-05-22] MEDS: LOVENOX 40 MG SC (18:39)
[2024-05-22] MEDS: NOVOLOG FLEXPEN 5 UNITS SC (18:39)
== END 2024-05-22 19:59 ==
LOC: 2 NORTH 18:34
PROVIDERS: Clinical Nurse Specialist Family Health; ADMITTING PHYSICIAN Hospitalist; EMERGENCY PHYSICIAN Emergency Medicine
DX: J10.1 Influenza due to other identified influenza virus with other respiratory manifestations (principal); I95.9 Hypotension, unspecified; F02.83 Dementia in other diseases classified elsewhere, unspecified severity, with mood disturbance; F02.84 Dementia in other diseases classified elsewhere, unspecified severity, with anxiety; E11.22 Type 2 diabetes mellitus with diabetic chronic kidney disease; E11.65 Type 2 diabetes mellitus with hyperglycemia; G30.9 Alzheimer's disease, unspecified; E78.00 Pure hypercholesterolemia, unspecified; I12.9 Hypertensive chronic kidney disease with stage 1 through stage 4 chronic kidney disease, or unspecified chronic kidney disease; K21.9 Gastro-esophageal reflux disease without esophagitis; N39.3 Stress incontinence (female) (male); R26.2 Difficulty in walking, not elsewhere classified; R06.02 Shortness of breath; N40.0 Benign prostatic hyperplasia without lower urinary tract symptoms; R00.1 Bradycardia, unspecified; N18.32 Chronic kidney disease, stage 3b; E87.5 Hyperkalemia; R91.8 Other nonspecific abnormal finding of lung field; E86.1 Hypovolemia; R79.89 Other specified abnormal findings of blood chemistry; E86.0 Dehydration; Z66 Do not resuscitate; Z79.4 Long term (current) use of insulin; Z85.828 Personal history of other malignant neoplasm of skin; Z87.01 Personal history of pneumonia (recurrent)
CPT/HCPCS: 71046; 80053; 82962; 84484; 85025; 87502; 93005; 97163; 99285; G0378